=== PATIENT | male | born 1955 | race Caucasian/White ===

== ENCOUNTER 2019-12-14 06:02 | Day surgery (SDC) | payer BC, SELFPAY ==
--- NOTE | 2019-12-04 11:26 | PM.HPUD ---
H&P update H&P Update: DATE OF SURGERY/PROCEDURE: 12/04/19 DATE H&P PERFORMED: 11/06/19 H&P UPDATE INFORMATION: H&P completed within last 30 days and No changes to prior documentation PLANNED PROCEDURE: Operation Date: 12/04/19 11:15 Proposed Procedures p Tympanoplasty requiring tube insertion(Not Applicable) - Real Self M.D
[2019-12-13 14:35] VITALS: BMI 40.7
[2019-12-14] VITALS (7 sets, daily range): BP systolic 118–156; BP diastolic 79–98; PULSE 75–88; RESP 14–19; TEMP 36.7–36.8; O2SAT 96–100
--- NOTE | 2019-12-14 06:34 | ANES.PREANES ---
Pre-Anesthetic Assessment Pre-Anesthetic Assessment: Height/Weight: Height 1.7 m Weight 117.934 kg Preop Diagnosis: recurrent otitis media Proposed Procedure: Operation Date: 12/14/19 07:35 Proposed Procedures p Myringotomy and Tubes(Not Applicable) - Real Self M.D Exam: Pre-Anes Outpt Exam: alert and oriented x 3 Airway: Submandibular: WNL Cervical ROM: WNL Pulmonary: Pulmonary: Asthma Musc/skel: Musc/skel: None reported Anesthetic Plan: Anesthesia: General PFSH Anesthesia PFSH: Family History (Updated 12/13/19 @ 14:31 by [employer]) Father Diabetes Cancer Mother Cancer Social History (Updated 12/13/19 @ 14:32 by [employer]) Smoking and tobacco status: former smoker Quit status (tobacco): has quit using tobacco Alcohol intake: never Data Anesthesia Cardiac Studies: No Data to Display
[2019-12-14] MEDS: sodium chloride 0.9% 1,000 ML 30 ML IV (07:06)
--- NOTE | 2019-12-14 07:55 | ANES.PREANES ---
Pre-Anesthetic Assessment Pre-Anesthetic Assessment: Height/Weight: Height 1.7 m Weight 117.934 kg Temp Pulse Resp BP Pulse Ox 98.1 F 77 18 131/79 97 12/14/19 06:35 12/14/19 06:35 12/14/19 06:35 12/14/19 06:35 12/14/19 06:35 Preop Diagnosis: recurrent otitis media Proposed Procedure: Operation Date: 12/14/19 07:35 Proposed Procedures p Myringotomy and Tubes(Not Applicable) - Real Self M.D Last intake: Intake Last Liquid Date 12/13/19 Last Liquid Time 20:30 Last Solid Date 12/13/19 Last Solid Time 20:30 Social: Social History: Tobacco Packs per day: 2 ppd x 25 years Comment: quit 25 y ago Exam: Pre-Anes Outpt Exam: alert and oriented x 3 Airway: Submandibular: Other Cervical ROM: Other MP: 3 Dentition: Partials Pulmonary: Comments: pneumonia post shoulder sx '14 CV/HEM: CV/HEM: PVD (08/16 left CEA) Anesthetic Plan: ASA status: III Anesthesia: General Meds/Allergies Current Medications: Current Medications Generic Name Dose Route Start Last Admin Trade Name Freq PRN Reason Stop Dose Admin Sodium Chloride 1,000 mls @ 30 ml s/hr 12/14/19 07:00 12/14/19 07:06 Sodium Chloride 0.9% IV 30 mls/hr .Q24H VERA Administration PFSH Anesthesia PFSH: Family History (Updated 12/13/19 @ 14:31 by [employer]) Father Diabetes Cancer Mother Cancer Social History (Updated 12/13/19 @ 14:32 by [employer]) Smoking and tobacco status: former smoker Quit status (tobacco): has quit using tobacco Alcohol intake: never Data Anesthesia Cardiac Studies: No Data to Display
[2019-12-14] MEDS: ofloxacin 0.3% otic 5 mL Btl 3 DROP EAR-BOTH (08:49)
--- NOTE | 2019-12-14 09:27 | PM.OP ---
Operative Report Date of procedure: 12/14/19 Pre-op Diagnosis: recurrent otitis media Post-op diagnosis: same Procedure Done: Bilateral myringotomy and tube Pathology: none sent Surgeon: Real Self Anesthesia: General Condition: stable Disposition: PACU Procedure: The patient was taken to the operating room and under satisfactory general LMA anesthesia the left ear was examined. A radial incision was made in the anterior-inferior quadrant of the left tympanic membrane. A large amount of fluid was suctioned from the middle ear space and a Paparella tube was placed. An identical procedure and findings were performed on the opposite side. No complications occurred and the patient was discharged in satisfactory and stable condition.
== END 2019-12-14 10:06 | disposition home or self-care (01) ==
PROVIDERS: Family Provider Family Medicine; PCP Family Medicine; Visit Provider Otolaryngology
PROC: (CPT 69420; principal; 2019-12-14 07:35)
DX: H65.33 Chronic mucoid otitis media, bilateral (principal); Z83.3 Family history of diabetes mellitus; E78.5 Hyperlipidemia, unspecified; G47.33 Obstructive sleep apnea (adult) (pediatric); Z87.891 Personal history of nicotine dependence; Z79.82 Long term (current) use of aspirin; H90.8 Mixed conductive and sensorineural hearing loss, unspecified; H93.A9 Pulsatile tinnitus, unspecified ear
CPT/HCPCS: 69436; 12345; 96365; J2001; J2250; J2405; J2704; J2765; J7030

== ENCOUNTER → 2020-01-04 09:04 | Outpatient (BNVA) | payer BC, SELFPAY | PROVIDERS: Family Provider Family Medicine; PCP Family Medicine; Visit Provider Otolaryngology | DX: H65.30 Chronic mucoid otitis media, unspecified ear (principal); H91.90 Unspecified hearing loss, unspecified ear | CPT/HCPCS: 99213; 99214 ==

== ENCOUNTER 2020-01-17 08:43 | Outpatient (CLI) | payer BC, SELFPAY ==
--- NOTE | 2020-01-17 08:45 | USCV_ITS ---
Christopher Ramirez Age: 64 Gender: M : 1955 Exam Date: 01/17/2020 09:01 Ordering Phys: Luis Armando Carreno MD (Andy) ([email or web address] [place] Technologist: Jolene Casey Exam Location: [facility] [place] Indication: CAROTID ARTERY STENOSIS Risk Factors: Previous Vascular Surgery: L CEA Right Brachial BP: / Left Brachial BP: / Right Left Velocity (cm/s) Spectral Plaque Velocity (cm/s) Spectral Plaque Syst/Diast Broadening Syst/Diast Broadening 70.60/ 24.30 Prox CCA 68.40 / 21.70 67.50/ 24.80 Mid CCA 77.70 / 29.50 64.90/ 19.70 Distal CCA 67.60 / 28.00 67.50/ 23.90 Prox ICA 142.80/ 34.20 84.60/ 35.90 Mid ICA 170.90/ 44.20 88.90/ 41.00 Distal ICA 136.70/ 60.30 106.00 ECA 175.60 1.32 ICA/CCA 2.20 Antegrade Vertebral Antegrade 39.50/ 13.90 cm/s 43.40/ 17.10 cm/s Tri Subclavian Tri 121.2 155.4 0 0 FINDINGS comparison 05/28/19 CONCLUSIONS Left ICA stenosis 50-69%. Moderate atheromatous plaque left carotid bulb/ICA. Velocities in mid and distal Left ICA have progressed from previous in 2019 Right ICA stenosis <50%. Mild atheromatous plaque right carotid bulb/ICA. Normal antegrade Doppler flow noted in the right vertebral artery. Normal antegrade Doppler flow noted in the left vertebral artery. William Zmaan MD (Electronically Signed) Final Date: 17 January 2020 10:20 S
== END 2020-01-17 08:44 | disposition home or self-care (01) ==
LOC: US 08:58
PROVIDERS: Family Provider Family Medicine; PCP Family Medicine; Visit Provider Thoracic Surgery (Cardiothoracic Vascular Surgery)
DX: I65.23 Occlusion and stenosis of bilateral carotid arteries (principal)
CPT/HCPCS: 93880

== ENCOUNTER 2021-02-20 06:58 | Outpatient (CLI) | payer OTHER, SELFPAY ==
--- NOTE | 2021-02-20 07:15 | USCV_ITS ---
Christopher Ramirez Age: 65 Gender: M : 1955 Exam Date: 02/20/2021 07:11 Ordering Phys: Luis Armando Carreno MD (Andy) ([email or web address] [place]) Technologist: Jaclyn Jimenez Exam Location: [facility] [place] Indication: STENOSIS Risk Factors: Previous Vascular Surgery: Right Brachial BP: / Left Brachial BP: / Right Left Velocity (cm/s) Spectral Plaque Velocity (cm/s) Spectral Plaque Syst/Diast Broadening Syst/Diast Broadening 92.10/ 25.30 Prox CCA 87.50 / 30.00 77.20/ 23.20 Mid CCA 68.60 / 27.40 75.00/ 23.40 Distal CCA 74.90 / 26.80 59.70/ 18.70 Prox ICA 109.20/ 22.50 72.70/ 28.00 Mid ICA 75.20 / 29.90 58.70/ 23.70 Distal ICA 73.60 / 29.10 129.00 ECA 131.70 0.79 ICA/CCA 1.59 Antegrade Vertebral Antegrade 37.30/ 15.60 cm/s 33.50/ 11.80 cm/s Tri Subclavian Tri 75.30 88.10 FINDINGS Moderate heterogeneous plaques of the right bifurcation Moderate heterogeneous plaques of the left bifurcation and proximal internal carotid artery Intimal thickening in the common carotid arteries bilaterally Antegrade flow in the vertebral arteries bilaterally Normal Doppler flow velocities in the subclavian arteries bilaterally CONCLUSIONS Moderate heterogeneous plaques at the bifurcations and proximal internal carotid arteries bilaterally with the Doppler features consistent with less than 50% stenosis Intimal thickening in the common carotid arteries bilaterally. Compared to the study from 01/17/2020, the stenosis on the left side appears to be less severe Dr Madalyn Downey MD [facility] (Electronically Signed) Final Date: 21 February 2021 12:15 S
== END 2021-02-20 06:59 | disposition home or self-care (01) ==
LOC: US 07:00
PROVIDERS: PCP Family Medicine; Visit Provider Thoracic Surgery (Cardiothoracic Vascular Surgery)
DX: I65.23 Occlusion and stenosis of bilateral carotid arteries (principal)
CPT/HCPCS: 93880

== ENCOUNTER 2021-07-03 07:00 | Outpatient (CLI) | payer OTHER, SELFPAY ==
[2021-07-03 07:09] VITALS: BP 133/85; PULSE 97; RESP 16; TEMP 36.7; O2SAT 96
[2021-07-03 07:56] VITALS: BP 121/77; PULSE 72; RESP 16; O2SAT 94
[2021-07-03 08:51] VITALS: BP 121/80; PULSE 74; RESP 16; TEMP 36.7; O2SAT 94
== END 2021-07-03 13:02 | disposition home or self-care (01) ==
PROVIDERS: PCP Family Medicine; Visit Provider Family Medicine
DX: U07.1 COVID-19 (principal)
CPT/HCPCS: 96365

== ENCOUNTER 2021-09-24 15:37 | Emergency (ER) | payer OTHER, SELFPAY ==
[2021-09-24 17:11] VITALS: BP 156/104; PULSE 88; RESP 18; TEMP 36.4; O2SAT 96; BMI 42.3
--- NOTE | 2021-09-24 17:46 | ED_ITS ---
HPI - Back Pain/Injury General: Chief Complaint: Back Pain/Injury Stated Complaint: W/C - BACK INJURY WHILE LIFTING MIRRORS Time Seen by Provider: 09/24/21 17:33 History of Present Illness: HPI Narrative: Patient is a 66-year-old male comes to the ED with back pain. 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 He is now having 10 out of 10 lower back pain that gets worse with certain movements and twisting of torso. Pain stays in lower back and does not radiate anywhere else. Denies any weakness, numbness to extremities, bladder or bowel incontinence or any pelvic anesthesia. Associated symptoms: Deny abdominal pain, chills, dysuria, fatigue, fever(s), hematuria, nausea or vomiting Review of Systems Const: Denies: fever(s), chills or fatigue Eyes: Denies: change in vision or eye discomfort ENMT: Denies: throat pain, odynophagia, nasal discharge or nasal congestion Card: Denies: chest pain, palpitations, edema, swelling of feet/ankles, dyspnea on exertion or orthopnea Resp: Denies: dyspnea, productive cough or non-productive cough GI: Denies: abdominal pain, nausea, vomiting, diarrhea, constipation or hematochezia : Denies: flank pain, difficulty urinating, dysuria or hematuria Musc: Reports: back pain; Denies: neck pain or extremity swelling Skin/Breast: Denies: rash or new lesions Neuro: Denies: headache(s), numbness in extremities or weakness in extremities PFS ED PFSH: Medical History Chronic secretory otitis media Hearing loss Surgical History H/O carotid endarterectomy History of appendectomy Family History Father Diabetes Cancer Mother Cancer Social History Smoking and tobacco status: former smoker Quit status (tobacco): has quit using tobacco Alcohol intake: never History of recent travel: No Physical Exam Const: COMMON NORMALS: no acute distress, patient oriented x3 and alert GENERAL APPEARANCE: cooperative and comfortable HENMT: COMMON NORMALS: normocephalic HEAD & SCALP: normocephalic MOUTH: Normal oral and palatal mucosa present THROAT: posterior oropharynx normal and uvula midline Neck/C-Spine: COMMON NORMALS: supple GENERAL: Yes normal visual inspection Resp: COMMON NORMALS: normal respiratory effort, No retractions, No use of accessory muscles and clear to auscultation bilaterally AUSCULTATION: clear to auscultation bilaterally Cardio: COMMON NORMALS: regular rate, regular rhythm, S1 normal heart sound present, S2 normal heart sound present, No gallops present (Cardio), No clicks present (Cardio), No murmurs present (Cardio) and Peripheral pulses 2+ throughout RATE: regular rate RHYTHM: regular rhythm HEART SOUNDS: S1 normal heart sound present and S2 normal heart sound present PERIPHERAL PULSES: Peripheral pulses 2+ throughout GI: COMMON NORMALS: Normal to inspection, nondistended, normoactive bowel sounds present, Soft to palpation, non-tender and no masses PALPATION: Yes Soft to palpation : COMMON NORMALS: Yes no CVA tenderness BLADDER/KIDNEY EXAM: Yes no CVA tenderness Back/Pelvis: COMMON NORMALS: no CVA tenderness LUMBAR SPINE/LOWER BACK: Yes pain with ROM, No lumbar spinal tenderness and Yes paraspinal muscle tenderness Lumbar paraspinal muscle tenderness: right Right lumbar paraspinal muscle tenderness: L2, L3 and L4 Extremity: COMMON NORMALS: normal to inspection Neuro: COMMON NORMALS: patient oriented x3 and moves all extremities SENSORIUM/ORIENTATION: Yes alert Skin: GENERAL SKIN EXAM: dry skin Course Vital Signs: Vital signs: Vital Signs Temperature 97.6 F 09/24/21 17:11 Pulse Rate 88 09/24/21 17:11 Respiratory Rate 18 09/24/21 17:11 Blood Pressure 156/104 09/24/21 17:11 Pulse Oximetry 96 09/24/21 17:11 MDM - Back Pain/Injury MDM Narrative: Medical decision making narrative: Patient is a 66-year-old male comes to the ED with lower back pain. Patient says he was at work couple days ago and was lifting some heavy mirrors and afterwards he felt pain in his right lower back. Pain is localized on right lower back and does not radiate anywhere else or into the legs. Denies any cauda equina symptoms. He is some lumbar paraspinal muscle tenderness on the right side around the L2-L4 region. Patient was given a dose of Toradol, Decadron and Norflex while here in the ED. Patient diagnosed with a lumbar strain and discharged home with a prescription for celebrex, Flexeril and Medrol Dosepak. Follow-up with PCP in 7 to 10 days for reevaluation. Return to ED precautions given. Patient understood and agreed with plan. Discharge Plan Discharge Patient Disposition: Home Clinical Impression: Strain of lumbar region Qualifiers: Encounter type: initial encounter Qualified Code(s): S39.012A - Strain of muscle, fascia and tendon of lower back, initial encounter Condition: Stable Prescriptions: New cyclobenzaprine 10 mg tablet 10 mg PO BID PRN (Reason: muscle spasm) Qty: 20 RF: 0 Medrol (Nadeem) 4 mg tablets,dose pack See Rx Instructions .ROUTE .COMPLEX Qty: 21 RF: 0 celecoxib 100 mg capsule 100 mg PO BID PRN (Reason: pain) Qty: 30 RF: 0 No Action topiramate 50 mg tablet 50 mg PO BID RF: 0 atorvastatin 40 mg tablet 40 mg PO DAILY RF: 0 clopidogrel 75 mg tablet 75 mg PO DAILY RF: 0 aspirin 81 mg Tablet,Delayed Release (Dr/Ec) 81 mg PO DAILY RF: 0 ibuprofen 800 MG 800 mg PO TID PRNRF: 0 Discharge Orders: Discharge ED (Routine); Ordered 09/24/21 Ordered By: Shakeel Younger Referrals: Shakeel Fulton MD [Primary Care Provider] - Discharge Diet: Regular Discharge Activity: Limit activity as instructed Patient Instructions: Low Back Strain (ED), Acute Low Back Pain (ED), Lower Ba ck Exercises (ED) Activity Restrictions/Additional Instructions: Follow-up with medical provider as directed in 7 to 10 days for reevaluation. Rest, apply ice/cold pack on lower back to help with symptoms. Limit lifting for the next couple days. Take medications as prescribed. Cyclobenzaprine is a muscle relaxer and can cause some drowsiness so take at night before going to bed. Return to the ER or your medical provider if condition worsens. Please read and understand discharge instructions. Thank you for choosing [facility] for your healthcare needs today. Please realize this is an emergency room and that we are providing you with a medical screening exam and this may not be complete and all inclusive of all the testing and or work up that you may need to determine your ailment or severity of your illness. It is very important that you follow up as instructed or that you return to the Emergency Department should you have concerns or if your condition changes or worsens in any way. Coding Level of Care Code ED Airplane Patrol Pilot for Alyssa Miller Exam Comprehensive
[2021-09-24] MEDS: orphenadrine 30 mg/mL Inj 2 mL 60 MG IM (18:10)
[2021-09-24] MEDS: dexamethasone 10 mg/mL INJ IM (18:11)
[2021-09-24] MEDS: ketorolac 60 mg/2 mL INJ IM (18:11)
== END 2021-09-24 18:27 | disposition home or self-care (01) ==
PROVIDERS: Emergency Provider Physician Assistant; PCP Family Medicine
DX: S39.012A Strain of muscle, fascia and tendon of lower back, initial encounter (principal); X50.9XXA Other and unspecified overexertion or strenuous movements or postures, initial encounter; Z87.891 Personal history of nicotine dependence; Z79.82 Long term (current) use of aspirin
CPT/HCPCS: 96372; 99283; J1100; J1885; J2360

== ENCOUNTER 2021-10-02 13:14 | Outpatient (CLI) | payer OTHER, SELFPAY ==
--- NOTE | 2021-10-02 13:28 | XR_ITS ---
WS: [id number] LUMBAR SPINE: 3 VIEWS TECHNIQUE: AP, lateral and L5-S1 spot. HISTORY: pain after injury COMPARISON: None available. Normal posterior lumbar alignment. Endplate osteophytes and very mild disc space narrowing. Facet art hritis is mild at L4-5 and L5-S1. Pedicles are all identified. No fracture. SI joints are symmetric bilaterally. No soft tissue abnormalities. Mild calcification within the aorta. XR/XR lumbar spine 2-3V* [id number] IMPRESSION: Mild lumbar spondylosis. No fracture.
== END 2021-10-02 13:15 | disposition home or self-care (01) ==
LOC: RAD 13:16
PROVIDERS: PCP Family Medicine; Visit Provider Nurse Practitioner
DX: M54.9 Dorsalgia, unspecified (principal); M47.816 Spondylosis without myelopathy or radiculopathy, lumbar region; S39.92XA Unspecified injury of lower back, initial encounter; X58.XXXA Exposure to other specified factors, initial encounter
CPT/HCPCS: 72100

== ENCOUNTER → 2022-02-26 13:24 | Outpatient (BNVA) | payer OTHER, SELFPAY | PROVIDERS: PCP Family Medicine; Visit Provider Registered Nurse Neonatal Intensive Care | DX: M25.511 Pain in right shoulder (principal) | CPT/HCPCS: 73030 ==

== ENCOUNTER → 2022-06-04 09:42 | Outpatient (BNVA) | payer OTHER, SELFPAY | PROVIDERS: PCP Family Medicine; Visit Provider Family Medicine | DX: E11.8 Type 2 diabetes mellitus with unspecified complications (principal); Z51.81 Encounter for therapeutic drug level monitoring | CPT/HCPCS: 80053; 80061; 83036 ==

== ENCOUNTER 2022-07-09 14:31 | Emergency (ER) | payer OTHER, SELFPAY ==
--- NOTE | 2022-07-09 14:34 | XR_ITS ---
WS: [id number] XR shoulder RT min 2V* [id number] REASON FOR EXAM: injury FINDINGS: The right shoulder joint is unchanged compared to previous examination of 02/26/2022. Wide separation of the acromial process and clavicle secondary to previous osteotomy of the right cla vicle. No fracture. Soft tissue anchors overlying the humeral head indicative of rotator cuff tendon repair. Moderate changes of osteoarthritis in the glenohumeral joint. No fracture of the humerus or glenoid. Scapula is intact. XR/XR shoulder RT min 2V* [id number] IMPRESSION: Postoperative changes and osteoarthritis. No acute abnormality.
[2022-07-09 14:52] VITALS: BP 151/83; PULSE 78; RESP 18; TEMP 36.7; O2SAT 95; BMI 37.5
[2022-07-09 16:43] VITALS: BP 154/81; PULSE 74; RESP 16; O2SAT 97
--- NOTE | 2022-07-09 16:46 | W.ED.EXTPRO ---
HPI - Extremity Problem General: Chief complaint: Extremity Injury, Upper Stated complaint: right shoulder pain Time Seen by Provider: 07/09/22 15:13 Source: patient Mode of arrival: ambulatory Limitations: no limitations History of Present Illness: 67-year-old male states that he was lifting his bed cover up earlier today states he felt a very sharp pop in his right shoulder he been having severe right shoulder pain since then he states its worse with any movement on lifting his arm. States improved with rest. He denies any headache has some slight radiation of pain into his neck. No weakness in that arm. Associated symptoms: Deny chest pain, fever(s) or rash Review of Systems Const: Denies: fever(s), chills, body aches or change in appetite Eyes: Denies: blurry vision or eye discomfort ENMT: Denies: throat pain or dental pain Card: Denies: chest pain Resp: Denies: dyspnea GI: Denies: abdominal pain, nausea, vomiting or diarrhea : Denies: dysuria Musc: Reports: extremity pain Skin/Breast: Denies: rash Neuro: Denies: headache(s) Psych: Denies: depression Gallo/Lymph: Denies: easy bruising All/Imm: Denies: urticaria PFSH ED PFSH: Medical History Chronic secretory otitis media Hearing loss Surgical History H/O carotid endarterectomy History of appendectomy Family History Father Diabetes Cancer Mother Cancer Social History Smoking and tobacco status: former smoker Quit status (tobacco): has quit using tobacco Alcohol intake: never History of recent travel: No Physical Exam Const: COMMON NORMALS: no acute distress, patient oriented x3 and healthy appearing HENMT: COMMON NORMALS: normocephalic and atraumatic HEAD & SCALP: normocephalic and atraumatic Eye: COMMON NORMALS: Equal, round and reactive pupils present and EOMs intact bilaterally PUPIL: Yes Equal, round and reactive pupils present Neck/C-Spine: COMMON NORMALS: full ROM and supple Chest: COMMONS NORMALS: normal inspection of the chest and normal palpation of entire chest wall Resp: COMMON NORMALS: normal respiratory effort Cardio: COMMON NORMALS: regular rate, regular rhythm and No murmurs present (Cardio) RATE: regular rate RHYTHM: regular rhythm GI: INSPECTION: Yes normal to inspection Extremity: NARRATIVE EXTREMITY EXAM: Tenderness over right shoulder does have full range of motion but does have some pain with range of motion no obvious deformities distal pulses sensation intact Neuro: COMMON NORMALS: patient oriented x3, moves all extremities and no focal motor deficits Psych: COMMON NORMALS: mental status grossly normal, Normal thought process present and cooperative THOUGHT PROCESS: Normal thought process present Skin: COMMON NORMALS: no rashes or lesions noted and no wounds GENERAL SKIN EXAM: no rashes or lesions noted Course Vital Signs: Vital signs: Vital Signs Temperature 98.1 F 07/09/22 14:52 Pulse Rate 74 07/09/22 16:43 Respiratory Rate 16 07/09/22 16:43 Blood Pressure 154/81 07/09/22 16:43 Pulse Oximetry 97 07/09/22 16:43 Oxygen Delivery Me thod 07/09/22 16:43 MDM - Extremity (Nontraumatic) Medical Decision Making Patient presents here with right shoulder pain with likely shoulder sprain likely muscular is quite tender over the muscle he had previous surgery for rotator injury as well we will place him in a sling he is to follow-up with orthopedics we will place him on pain medicine along with anti-inflammatories and muscle relaxants we will get him follow-up with orthopedics he is to return if worsening he understands agrees to plan. Lab Data Radiology Impressions Shoulder X-Ray 07/09/22 14:34 IMPRESSION: Postoperative changes and osteoarthritis. No acute abnormality. Discharge Plan Discharge Patient Disposition: Home Clinical Impression: Right shoulder strain Condition: Stable Prescriptions: New hydrocodone-acetaminophen 5-325 mg tablet 1 tab PO Q6H PRN (Reason: pain) Qty: 8 0RF methocarbamol 750 mg tablet 750 mg PO Q6H PRN (Reason: spasms) Qty: 20 0RF Naprosyn 500 mg tablet 500 mg PO BID PRN (Reason: pain) Qty: 20 0RF No Action baclofen 10 mg tablet 10 mg PO TID PRN (Reason: muscle spasm) Qty: 20 0RF diclofenac sodium 75 mg tablet,delayed release (DR/EC) 75 mg PO BID PRN (Reason: pain) Qty: 30 0RF Rx Instructions: take with food. Safe to drive when taking hydrocodone-acetaminophen 7.5-325 mg tablet 1 tab PO Q8H PRN (Reason: pain) 7 Days Qty: 20 0RF atorvastatin 40 mg tablet 40 mg PO DAILY clopidogrel 75 mg tablet 75 mg PO DAILY aspirin 81 mg Tablet,Delayed Release (Dr/Ec) 81 mg PO DAILY Discharge Orders: Discharge ED (Routine); Ordered 07/09/22 Ordered By: Ej Galindo Referrals: Gurpreet Benavidez DO [Physician] - 1-3 days Shakeel Fulton MD [Primary Care Provider] - Discharge Diet: Advance as tolerated Discharge Activity: Resume usual activity Patient Instructions: Shoulder Sprain (ED), Shoulder Pain (ED), Opioid Safety Coding Level of Care Code ED [employer] Tank Missileman for Alyssa Miller
[2022-07-09] MEDS: HYDROcodone-acetaminophen 5-325 mg Tablet 1 TAB PO (17:08)
--- NOTE | 2022-07-13 12:24 | DCPLANNER ---
Addendum entered by Tana Marcos 07/30/22 12:54: Patient had a follow up appointment scheduled for 07.13.22 with ortho - patient did attend appointment. Original Note: environmental services project manager had message to schedule a follow up appointment for patient with ortho. environmental services project manager sent patients information to the front office staff at ortho. Patients information will be printed and reviewed. Clinic will call patient with appointment information.
== END 2022-07-09 17:08 | disposition home or self-care (01) ==
PROVIDERS: Emergency Provider Emergency Medicine; PCP Family Medicine
DX: S46.911A Strain of unspecified muscle, fascia and tendon at shoulder and upper arm level, right arm, initial encounter (principal); Z79.82 Long term (current) use of aspirin; Z79.02 Long term (current) use of antithrombotics/antiplatelets; Z87.891 Personal history of nicotine dependence; X50.0XXA Overexertion from strenuous movement or load, initial encounter
CPT/HCPCS: 73030; 99283

== ENCOUNTER 2022-07-16 08:11 | Outpatient (RCR) | payer OTHER, SELFPAY | END 2022-07-28 23:59 | disposition home or self-care (01) | LOC: SPT 08:11 | PROVIDERS: PCP Family Medicine; Referring Provider Student in an Organized Health Care Education/Training Program; Visit Provider Student in an Organized Health Care Education/Training Program | DX: S46.219D Strain of muscle, fascia and tendon of other parts of biceps, unspecified arm, subsequent encounter (principal); X58.XXXD Exposure to other specified factors, subsequent encounter | CPT/HCPCS: 97110; 97161 ==

== ENCOUNTER 2022-07-29 06:00 | Outpatient (RCR) | payer OTHER, SELFPAY | END 2022-08-27 23:59 | disposition home or self-care (01) | LOC: SPT 06:00 | PROVIDERS: PCP Family Medicine; Visit Provider Student in an Organized Health Care Education/Training Program | DX: S43.421D Sprain of right rotator cuff capsule, subsequent encounter (principal); X58.XXXD Exposure to other specified factors, subsequent encounter; M25.511 Pain in right shoulder | CPT/HCPCS: 97110 ==

== ENCOUNTER 2022-08-27 06:01 | Outpatient (CLI) | payer OTHER, SELFPAY ==
--- NOTE | 2022-08-27 06:30 | USCV_ITS ---
RamirezChristopher murphy Age: 67 Gender: M : 1955 Exam Date: 08/27/2022 06:20 Ordering Phys: Luis Armando Carreno MD (Andy) ([email or web address] [place] Technologist: MIGUEL Exam Location: [facility] [place] Indication: H/O LT CEA EVAL FOR CAROTID STENOSIS Risk Factors: Previous Vascular Surgery: Right Brachial BP: / Left Brachial BP: / Right Left Velocity (cm/s) Spectral Plaque Velocity (cm/s) Spectral Plaque Syst/Diast Broadening Syst/Diast Broadening 97.00/ 27.60 Prox CCA 92.60 / 29.80 99.20/ 24.30 Mid CCA 86.00 / 27.60 84.60/ 27.30 Distal CCA 74.30 / 26.50 64.80/ 18.20 Prox ICA 92.00 / 19.40 72.90/ 22.30 Mid ICA 78.90 / 40.30 66.90/ 29.30 Distal ICA 94.05 / 47.15 100.30 ECA 137.50 0.73 ICA/CCA 1.18 Antegrade Vertebral Antegrade 42.40/ 15.70 cm/s 46.60/ 15.50 cm/s Tri Subclavian Tri 146.9 168.3 0 0 FINDINGS Comparison:. 02/20/21 No significant elevation of systolic or diastolic velocities. Mild bilateral scattered calcified plaque and intimal thickening throughout the common carotid arteries and extending through the bifurcation. No progression of plaque. Antegrade vertebral arteries CONCLUSIONS Bilateral ICA stenosis less than 50%. Mild stable carotid atherosclerosis. Dr. Hannah Keen DO (Electronically Signed) Final Date: 27 August 2022 07:40 S
== END 2022-08-27 06:02 | disposition home or self-care (01) ==
LOC: RAD 06:02
PROVIDERS: PCP Family Medicine; Visit Provider Thoracic Surgery (Cardiothoracic Vascular Surgery)
DX: I65.23 Occlusion and stenosis of bilateral carotid arteries (principal)
CPT/HCPCS: 93880

== ENCOUNTER 2022-08-28 06:00 | Outpatient (RCR) | payer OTHER, SELFPAY | END 2022-09-02 23:59 | disposition home or self-care (01) | LOC: SPT 06:00 | PROVIDERS: PCP Family Medicine; Visit Provider Student in an Organized Health Care Education/Training Program | DX: S46.011A Strain of muscle(s) and tendon(s) of the rotator cuff of right shoulder, initial encounter (principal); X58.XXXA Exposure to other specified factors, initial encounter | CPT/HCPCS: 97110 ==

== ENCOUNTER → 2022-09-17 08:35 | Outpatient (BNVA) | payer OTHER, SELFPAY | PROVIDERS: PCP Family Medicine; Visit Provider Family Medicine | DX: E11.9 Type 2 diabetes mellitus without complications (principal); Z13.220 Encounter for screening for lipoid disorders; Z51.81 Encounter for therapeutic drug level monitoring | CPT/HCPCS: 80053; 80061; 83036; 85025 ==

== ENCOUNTER → 2022-12-24 09:44 | Outpatient (BNVA) | payer MEDICARE, OTHER, SELFPAY | PROVIDERS: PCP Family Medicine; Visit Provider Family Medicine | DX: Z51.81 Encounter for therapeutic drug level monitoring (principal); E11.9 Type 2 diabetes mellitus without complications; R16.0 Hepatomegaly, not elsewhere classified; H53.9 Unspecified visual disturbance; M76.899 Other specified enthesopathies of unspecified lower limb, excluding foot; R42 Dizziness and giddiness; Z01.810 Encounter for preprocedural cardiovascular examination | CPT/HCPCS: 80053; 85025; 86141 ==

== ENCOUNTER → 2022-12-29 14:39 | Outpatient (BNVA) | payer MEDICARE, OTHER, SELFPAY | PROVIDERS: PCP Family Medicine; Visit Provider Family Medicine | DX: E11.9 Type 2 diabetes mellitus without complications (principal); Z51.81 Encounter for therapeutic drug level monitoring | CPT/HCPCS: 83036; 85025 ==

== ENCOUNTER 2023-01-07 06:00 | Outpatient (RCR) | payer MEDICARE, OTHER, SELFPAY | END 2023-01-15 23:59 | disposition home or self-care (01) | LOC: SPT 06:00 | PROVIDERS: PCP Family Medicine; Visit Provider Family Medicine | DX: R42 Dizziness and giddiness (principal) | CPT/HCPCS: 95992; 97162 ==

== ENCOUNTER 2023-01-17 21:08 | Emergency (ER) | payer MEDICARE, OTHER, SELFPAY ==
[2023-01-17 21:09] VITALS: BP 157/78; PULSE 89; RESP 18; TEMP 36.5; O2SAT 95; BMI 40.7
--- NOTE | 2023-01-17 21:10 | XRR_ITS ---
PROCEDURE INFORMATION: Exam: XR Right Ankle Exam date and time: 01/17/2023 9:30 PM Age: 67 years old Clinical indication: Pain; Ankle; Right; Prior surgery; Surgery date: 6+ months; Surgery type: Surgery 1980; Additional info: Injury TECHNIQUE: Imaging protocol: Radiologic exam of the Right ankle. Views: 3 or more views. COMPARISON: No relevant prior studies available. FINDINGS: Bones/joints: Postoperative changes of plate and screw fixation distal diaphysis of the right fibula with intact hardware. There is also a single screw present in the medial malleolus. A small fracture fragment is seen adjacent to the medial malleolus measuring 6 mm which appears well corticated consistent with old trauma. No acute displaced fracture. Minimal soft tissue swelling. Mild tibiotalar joint arthritis. Soft tissues: See Bones/joints finding. XR/XR ankle RT min 3V* [id number] IMPRESSION: 1. Postoperative changes. No acute osseous injury. 2. Minimal soft tissue swelling.
--- NOTE | 2023-01-17 21:55 | ED_ITS ---
HPI - Extremity Problem General: Chief complaint: Extremity Injury, Lower Stated complaint: right ankle pain Time Seen by Provider: 01/17/23 21:22 History of Present Illness: Patient is a 67-year-old male who comes to the ED with right ankle pain. Symptoms started this morning. He states that he started trying to exercise by walking 2 miles every evening for the past 2 days. He has not been doing any other exercises previously and he states that this is the most walking he has done in a while. Today he started developing right ankle pain and pain around his Achilles tendon. Pain is mild when he is at rest. Pain worsens when he ambulates. Patient says he has a history of an ankle fracture back in and he had surgery and hardware was placed. Denies any other injury or trauma to cause right ankle pain. He has been icing ankle today. Associated symptoms: Deny chest pain, fever(s) or rash Review of Systems Const: Denies: fever(s), chills or fatigue Eyes: Denies: change in vision or eye discomfort ENMT: Denies: throat pain, odynophagia, nasal discharge or nasal congestion Card: Denies: chest pain, palpitations, edema, swelling of feet/ankles, dyspnea on exertion or orthopnea Resp: Denies: dyspnea, productive cough or non-productive cough GI: Denies: abdominal pain, nausea, vomiting, diarrhea, constipation or hematochezia : Denies: flank pain, difficulty urinating, dysuria or hematuria Musc: Reports: extremity pain (Right ankle and Achilles tendon pain); Denies: neck pain, back pain or extremity swelling Skin/Breast: Denies: rash or new lesions Neuro: Denies: headache(s), numbness in extremities or weakness in extremities PFSH ED PFSH: Medical History Chronic secretory otitis media Hearing loss Right rotator cuff tendonitis Surgical History H/O carotid endarterectomy History of appendectomy Family History Father Diabetes Cancer Mother Cancer Social History Smoking and tobacco status: former smoker Quit status (tobacco): has quit using tobacco Alcohol intake: never Physical Exam Const: COMMON NORMALS: no acute distress, patient oriented x3 and alert GENERAL APPEARANCE: cooperative HENMT: COMMON NORMALS: normocephalic HEAD & SCALP: normocephalic MOUTH: Normal oral and palatal mucosa present THROAT: posterior oropharynx normal and uvula midline Neck/C-Spine: COMMON NORMALS: supple GENERAL: Yes normal visual inspection Resp: COMMON NORMALS: normal respiratory effort, No retractions, No use of accessory muscles and clear to auscultation bilaterally AUSCULTATION: clear to auscultation bilaterally Cardio: COMMON NORMALS: regular rate, regular rhythm, S1 normal heart sound present, S2 normal heart sound present, No gallops present (Cardio), No clicks present (Cardio), No murmurs present (Cardio) and Peripheral pulses 2+ throughout RATE: regular rate RHYTHM: regular rhythm HEART SOUNDS: S1 normal heart sound present and S2 normal heart sound present PERIPHERAL PULSES: Peripheral pulses 2+ throughout GI: COMMON NORMALS: Normal to inspection, nondistended, normoactive bowel sounds present, Soft to palpation, non-tender and no masses PALPATION: Yes Soft to palpation : COMMON NORMALS: Yes no CVA tenderness BLADDER/KIDNEY EXAM: Yes no CVA tenderness Back/Pelvis: COMMON NORMALS: no CVA tenderness Extremity: NARRATIVE EXTREMITY EXAM: Right ankle?no visible deformity noted. Tenderness posterior to lateral malleolus and to Achilles tendon. Neurovascular intact distally. Neuro: COMMON NORMALS: patient oriented x3 SENSORIUM/ORIENTATION: Yes alert GAIT: Yes Normal gait present Skin: GENERAL SKIN EXAM: dry skin Course Vital Signs: Vital signs: Vital Signs Temperature 97.7 F 01/17/23 21:09 Pulse Rate 82 01/17/23 23:10 Respiratory Rate 18 01/17/23 23:10 Blood Pressure 157/78 01/17/23 21:09 Pulse Oximetry 100 01/17/23 23:10 Oxygen Delivery Me thod 01/17/23 21:09 MDM - Extremity (Nontraumatic) Medical Decision Making Patient is a 67-year-old male who comes to the ED with right ankle pain. Symptoms started this morning. He states that he started trying to exercise by walking 2 miles every evening for the past 2 days. He has not been doing any other exercises previously and he states that this is the most walking he has done in a while. Today he started developing right ankle pain and pain around his Achilles tendon. Pain is mild when he is at rest. Pain worsens when he ambulates. Patient says he has a history of an ankle fracture back in 1980s and he had surgery and hardware was placed. Vitals are stable. Right ankle?no visible deformity noted. Tenderness posterior to lateral malleolus and to Achilles tendon. Neurovascular intact distally. X-ray of right ankle shows no acute fractures and hardware is in place. He was diagnosed with right ankle pain likely due to overuse. He was discharged home with a crutches and told to limit weightbearing for the next couple days for to help with symptoms. Rest, ice and elevate right ankle. Return to ED precautions given. follow-up with PCP in the next week for reevaluation. Patient understood and agreed with plan. Lab Data Radiology Impressions Ankle X-Ray 01/17/23 21:10 IMPRESSION: 1. Postoperative changes. No acute osseous injury. 2. Minimal soft tissue swelling. Discharge Plan Discharge Patient Disposition: Home Clinical Impression: Ankle pain, right Qualifiers: Chronicity: acute Qualified Code(s): M25.571 - Pain in right ankle and joints of right foot Condition: Stable Prescriptions: No Action amoxicillin-pot clavulanate 875-125 mg tablet 1 tab PO BID Qty: 20 1RF insulin glargine [Lantus Solostar U-100 Insulin] 100 unit/mL (3 mL) insulin pen 55 unit SUBCUT DAILY Qty: 15 12RF (DME) Premier Test Strip Strip See Rx Instructions .Route Qty: 100 12RF Rx Instructions: As directed - test glucose 3x/day clopidogrel 75 mg tablet 75 mg PO DAILY Qty: 30 6RF (DME) pen needle, diabetic [BD Nasreen 2nd Gen Pen Needle] 32 gauge x 5/32 needle See Rx Instructions .ROUTE .COMPLEX Qty: 100 12RF Dose Instruction: USE DIRECTED Rx Instructions: USE DIRECTED atorvastatin 40 mg tablet 40 mg PO DAILY aspirin 81 mg Tablet,Delayed Release (Dr/Ec) 81 mg PO DAILY hydrocodone-acetaminophen 5-325 mg tablet 1 tab PO Q6H PRN (Reason: pain) Qty: 8 0RF Discharge Orders: Discharge ED (Routine); Ordered 01/17/23 Ordered By: Shakeel Younger Referrals: Shakeel Fulton MD [Primary Care Provider] - Discharge Diet: Regular Discharge Activity: Limit activity as instructed and Use walker/crutches as instructed Activity Restrictions/Additional Instructions: Follow-up with medical provider as directed in the next 5 to 7 days for reevaluation. Rest, ice and elevate right ankle to help with symptoms. Use crutches and limit weightbearing for the next 2 to 3 days and slowly advance weightbearing as tolerated. Take your previously prescribed tramadol for pain. Return to the ER or your medical provider if condition worsens. Please read and understand discharge instructions. Thank you for choosing [facility] for your healthcare needs today. Please realize this is an emergency room and that we are providing you with a medical screening exam and this may not be complete and all inclusive of all the testing and or work up that you may need to determine your ailment or severity of your illness. It is very important that you follow up as instructed or that you return to the Emergency Department should you have concerns or if your cond ition changes or worsens in any way. Stand Alone Forms: Work/School Release Coding Level of Care Code ED Supervisor [employer] for Alyssa Miller
[2023-01-17] MEDS: ketorolac 30 mg/mL INJ IM (22:04)
[2023-01-17 23:10] VITALS: PULSE 82; RESP 18; O2SAT 100
== END 2023-01-17 23:11 | disposition home or self-care (01) ==
PROVIDERS: Emergency Provider Physician Assistant; PCP Family Medicine
DX: M25.571 Pain in right ankle and joints of right foot (principal); Z79.82 Long term (current) use of aspirin; Z79.4 Long term (current) use of insulin; Z79.02 Long term (current) use of antithrombotics/antiplatelets
CPT/HCPCS: 73610; 96372; 99284; E0114; J1885

== ENCOUNTER 2023-01-21 06:47 | Outpatient (CLI) | payer MEDICARE, OTHER, SELFPAY ==
--- NOTE | 2023-01-21 07:15 | US_ITS ---
WS: [id number] RIGHT UPPER QUADRANT ULTRASOUND HISTORY: Hepatomegaly - RUQ US COMPARISON: 08/16/2013 Liver: 19.1 cm in length. Liver is moderately enlarged. Size has increased since the prior study. No mass or bile duct dilatation. Mild increased attenuation throughout the liver from hepatic steatosis. Portal Vein: Normal hepatopetal flow with monophasic waveform. Gallbladder: Status post cholecystectomy. CBD: 0.4 cm Pancreas: Normal size and echogenicity. Right kidney: 12.2 cm in length. Normal size and echogenicity. No hydronephrosis or mass. Aorta and IVC: Unremarkable abdominal aorta and IVC. No ascites. US/US abdomen limited [id number] IMPRESSION: 1. Prior cholecystectomy. 2. Moderate hepatic steatosis and hepatomegaly. Size of the liver and hepatic steatosis have increased since 2012.
== END 2023-01-21 06:48 | disposition home or self-care (01) ==
LOC: RAD 06:49
PROVIDERS: PCP Family Medicine; Visit Provider Family Medicine
DX: R16.0 Hepatomegaly, not elsewhere classified (principal); Z90.49 Acquired absence of other specified parts of digestive tract; K76.0 Fatty (change of) liver, not elsewhere classified
CPT/HCPCS: 76705

== ENCOUNTER → 2023-04-01 09:37 | Outpatient (BNVA) | payer MEDICARE, OTHER, SELFPAY | PROVIDERS: PCP Family Medicine; Visit Provider Family Medicine | DX: E11.9 Type 2 diabetes mellitus without complications (principal); R53.81 Other malaise; R53.83 Other fatigue; E53.8 Deficiency of other specified B group vitamins; Z51.81 Encounter for therapeutic drug level monitoring; E03.9 Hypothyroidism, unspecified; Z13.220 Encounter for screening for lipoid disorders | CPT/HCPCS: 80053; 80061; 82607; 83036; 84439; 84443; 85025 ==

== ENCOUNTER → 2023-05-27 08:41 | Outpatient (BNVA) | payer MEDICARE, OTHER, SELFPAY | PROVIDERS: PCP Family Medicine; Visit Provider Family Medicine | DX: E11.9 Type 2 diabetes mellitus without complications (principal); Z51.81 Encounter for therapeutic drug level monitoring | CPT/HCPCS: 80053 ==

== ENCOUNTER → 2023-07-15 09:09 | Outpatient (BNVA) | payer MEDICARE, OTHER, SELFPAY | PROVIDERS: PCP Family Medicine; Visit Provider Family Medicine | DX: Z51.81 Encounter for therapeutic drug level monitoring (principal); E11.9 Type 2 diabetes mellitus without complications; E53.8 Deficiency of other specified B group vitamins; R25.2 Cramp and spasm; Z13.220 Encounter for screening for lipoid disorders | CPT/HCPCS: 80053; 80061; 82550; 82607; 83036; 85025 ==

== ENCOUNTER 2023-08-19 06:42 | Outpatient (CLI) | payer MEDICARE, OTHER, SELFPAY ==
--- NOTE | 2023-08-19 07:15 | USCV_ITS ---
Christopher Ramirez Age: 68 Gender: M : 1955 Exam Date: 08/19/2023 06:54 Ordering Phys: Luis Armando Carreno MD (Andy) ([email or web address] [place]) Technologist: Dennis Dominguez Exam Location: [facility] [place] Indication: bilat carotid Risk Factors: Previous Vascular Surgery: Right Brachial BP: / Left Brachial BP: / Right Left Velocity (cm/s) Spectral Plaque Velocity (cm/s) Spectral Plaque Syst/Diast Broadening Syst/Diast Broadening 106.90/38.60 Prox CCA 97.40 / 31.60 92.60/ 24.30 Mid CCA 76.00 / 26.50 68.40/ 22.50 Distal CCA 70.90 / 15.40 69.90/ 21.80 Prox ICA 97.40 / 23.90 55.90/ 19.40 Mid ICA 85.40 / 27.30 60.70/ 22.20 Distal ICA 89.70 / 29.10 103.40 ECA 109.40 0.60 ICA/CCA 1.12 Antegrade Vertebral Antegrade 40.20/ 17.50 cm/s 41.00/ 6.80 cm/s Tri Subclavian Tri 67.70 103.4 0 CONCLUSIONS Right ICA stenosis <50%. Moderate calcified atheromatous plaque right carotid bulb/ICA. Left ICA stenosis <50%. Mild atheromatous plaque left carotid bulb/ICA. Normal antegrade Doppler flow noted in the right vertebral artery. Normal antegrade Doppler flow noted in the left vertebral artery. William Zaman MD (Electronically Signed) Final Date: 19 August 2023 09:07 S
== END 2023-08-19 06:43 | disposition home or self-care (01) ==
LOC: RAD 06:43
PROVIDERS: PCP Family Medicine; Visit Provider Thoracic Surgery (Cardiothoracic Vascular Surgery)
DX: I65.23 Occlusion and stenosis of bilateral carotid arteries (principal)
CPT/HCPCS: 93880

== ENCOUNTER → 2023-09-01 10:21 | Outpatient (BNVA) | payer MEDICARE, OTHER, SELFPAY | PROVIDERS: PCP Family Medicine; Visit Provider Thoracic Surgery (Cardiothoracic Vascular Surgery) | DX: Z98.890 Other specified postprocedural states (principal) | CPT/HCPCS: 99213 ==

== ENCOUNTER → 2023-10-14 08:44 | Outpatient (BNVA) | payer MEDICARE, OTHER, SELFPAY | PROVIDERS: PCP Family Medicine; Visit Provider Family Medicine | DX: E11.9 Type 2 diabetes mellitus without complications (principal); Z51.81 Encounter for therapeutic drug level monitoring; Z13.220 Encounter for screening for lipoid disorders | CPT/HCPCS: 80053; 80061; 83036; 85025 ==

== ENCOUNTER 2023-11-01 09:04 | Emergency (ER) | payer MEDICARE, OTHER, SELFPAY ==
[2023-11-01] VITALS (9 sets, daily range): BP systolic 132–185; BP diastolic 85–114; PULSE 75–92; RESP 18; TEMP 36.4; O2SAT 95–100; BMI 43.0
--- NOTE | 2023-11-01 09:57 | CT_ITS ---
WS: [id number] CT HEAD NONCONTRAST HISTORY: R sided headache TECHNIQUE: Contiguous axial imaging performed through the brain in 2.5 mm imaging. Bone and soft tiss ue windows. Sagittal and coronal reformats reviewed. All CT scans at [facility] use at least one of these dose optimization techniques: automated exposure control; mA and/or kV adjustment per pa tient size (includes targeted exams where dose is matched to clinical indication); or iterative recon struction. DLP: 1188.74 mGy.cm COMPARISON: 03/02/2019 No acute intracranial hemorrhage, midline shift or mass effect. Very mild atrophy and volume loss. Minimal small vessel ischemic disease. Ventricles: Normal size with no hydrocephalus. No inferior displacement of the cerebellar tonsils. Scattered calcified plaque in the intracranial ca rotid arteries. Paranasal sinuses: As visualized are clear. Mastoid air cells: Mild coalescence of mastoid air cells. Calvarium and scalp: Skull is intact with no soft tissue edema or swelling. IMPRESSION: 1. No acute intracranial hemorrhage or edema. 2. Stable noncontrast head CT.
--- NOTE | 2023-11-01 09:58 | W.ED.HA ---
HPI - Headache General: Chief Complaint: Headache Stated Complaint: head pains Time Seen by Provider: 11/01/23 09:07 Source: patient Mode of arrival: ambulatory Limitations: no limitations History of Present Illness: Patient is a nice 68-year-old male who presents to ED today with a complaint of pain to the right side of his head. Patient states symptoms started approximately 2 to 3 days ago. He reports having brief intermittent sharp shooting exacerbations starting around his right hinduism and extending into the right parietal region of his scalp. He has noticed that his scalp and hair are sensitive to the touch. No visual changes or eye pain. He does report recent procedure by Dr. Cruz to the left eye to remove floaters. He states in between exacerbations he still has pain, just not as intense. Reports some mild ear pain. Has not noticed any rash/lesions to the face/scalp. No gait disturbance. No trouble with speech. Denies N/V. MD elicited complaint: headache Onset (ago): day(s) Onset description: gradually Location: right, temporal and parietal Severity: moderate Quality & Timing: sharp and intermittent Exacerbating factors: none Relieving factors: nothing Associated symptoms: Deny chest pain, confusion, fever(s), lightheadedness, malaise, nausea, rash, syncope or vomiting Treatments prior to arrival: none Review of Systems Const: Denies: fever(s), chills, body aches, fatigue or malaise Eyes: Denies: change in vision, blurry vision, photophobia or seeing flashes ENMT: Reports: ear or mastoid pain; Denies: throat pain, odynophagia, nasal discharge, nasal congestion, post nasal drip or sinus pain Card: Denies: chest pain, palpitations, irregular heart rhythm, lightheadedness, syncope or dyspnea on exertion Resp: Denies: dyspnea, productive cough or pain on inspiration GI: Denies: abdominal pain, nausea, vomiting, heartburn or diarrhea : Denies: difficulty urinating or dysuria Musc: Denies: neck pain, back pain or joint pain Skin/Breast: Denies: rash Neuro: Reports: headache(s); Denies: numbness in extremities, weakness in extremities, sensory changes, difficulty walking, dizziness or confusion [facility] ED PFSH: Medical History CAD (coronary artery disease) Diabetes mellitus type 2, controlled Right rotator cuff tendonitis Hearing loss Chronic secretory otitis media Surgical History History of rotator cuff surgery History of cholecystectomy History of ear surgery (~11/2019) H/O carotid endarterectomy History of appendectomy Family History Father Diabetes Cancer Mother Cancer at age 81 - Breast cancer Social History Smoking and tobacco/nicotine status: former use of tobacco/nicotine Quit status (tobacco/nicotine): has quit using Alcohol intake: never Substance/Drug Use: never Physical Exam Const: COMMON NORMALS: no acute distress, patient oriented x3, no limitations, alert and well nourished GENERAL APPEARANCE: cooperative NUTRITIONAL APPEARANCE: obese ORIENTATION/CONSCIOUSNESS: Yes awake, Yes oriented to person, Yes oriented to place and Yes oriented to time HENMT: COMMON NORMALS: normocephalic, atraumatic, hearing grossly normal bilaterally, external ears normal, EAC's normal, TM's normal bilaterally, Normal external nose present, Normal nasal mucous membranes and turbinates present, moist oral mucous membranes and oropharynx normal HEAD & SCALP: normal to inspection, normocephalic and atraumatic FACE & SINUS: normal facial exam, sinuses nontender and face symmetric NOSE: Normal external nose present and Normal nasal mucous membranes and turbinates present EXTERNAL EAR: Yes external ears normal EXTERNAL AUDITORY CANAL: EAC's normal TYMPANIC MEMBRANE: TM's normal bilaterally MOUTH: Normal oral and palatal mucosa present and lip normal THROAT: posterior oropharynx normal Eye: COMMON NORMALS: Equal, round and reactive pupils present and EOMs intact bilaterally GENERAL EYE: appearance normal, both eyes and all related structures and normal light reflex PUPIL: Yes Equal, round and reactive pupils present DIRECT OPHTHALMOSCOPY: Yes normal light reflex Neck/C-Spine: COMMON NORMALS: full ROM, no lymphadenopathy, supple and no meningeal signs Chest: COMMONS NORMALS: normal inspection of the chest Resp: COMMON NORMALS: normal respiratory effort and clear to auscultation bilaterally AUSCULTATION: clear to auscultation bilaterally Cardio: COMMON NORMALS: regular rate and regular rhythm RATE: regular rate RHYTHM: regular rhythm Neuro: LATOSHA COMA SCALE: document GCS findings [place] coma scale eye opening: Spontaneous Latosha coma scale verbal response: Orientated Latosha coma scale motor response: Obey commands Latosha coma scale total score: 15 COMMON NORMALS: patient oriented x3, CN's II-XII intact bilaterally, moves all extremities, no focal motor deficits, no sensory deficits noted and gait normal SENSORIUM/ORIENTATION: Yes alert, Yes oriented to person, Yes oriented to place and Yes oriented to time MENINGEAL SIGNS: Yes no meningeal signs Skin: COMMON NORMALS: no rashes or lesions noted GENERAL SKIN EXAM: no rashes or lesions noted Course Vital Signs: Vital signs: Vital Signs Temperature 97.6 F 11/01/23 09:34 Pulse Rate 77 11/01/23 12:44 Respiratory Rate 18 11/01/23 09:34 Blood Pressure 135/90 11/01/23 12:44 Pulse Oximetry 98 11/01/23 12:44 Oxygen Delivery Me thod Room Air 11/01/23 12:18 Oxygen Flow Rate 12 11/01/23 10:20 MDM - Headache Medical Decision Making Patient here for sharp stabbing intermittent pains to R temporal/parietal scalp. CT head negative. No neurologic deficits noted by history or physical exam. No rash to suggest shingles although he was counselled on seeking medical re-evaluation if rash/lesions occur. DDx includes cluster headache although he has none of the autonomic symptoms with this. He was trialed on high volume O2 here without any improvement. Other DDx includes trigeminal neuralgia, primary stabbing headache, unilateral neuralgiform headache, hypertension headache (BP was elevated upon arrival-this was initially not treated hoping it would come down on its own as he states his blood pressure is normally okay-plan was to treat headache in hopes that this would improve blood pressure as well however bp continued to elevated so bp meds were ordered-bp trending down but had no effect on his headache). I will start patient on Indomethacin for treatment of a primary stabbing headache and have him follow up with primary care later this week for further evaluation. Return to ED precautions given here. All radiology interpretation(s) finalized by discharge Discharge Plan Discharge Patient Disposition: Home Clinical Impression: Headache Qualifiers: Headache type: unspecified Headache chronicity pattern: acute headache Intractability: intractable Qualified Code(s): R51.9 - Headache, unspecified Condition: Stable Prescriptions: New indomethacin 75 mg capsule, extended release 75 mg PO DAILY Qty: 7 0RF No Action insulin glargine [Lantus Solostar U-100 Insulin] 100 unit/mL (3 mL) insulin pen 44 unit SUBCUT QAM (DME) Premier Test Strip Strip See Rx Instructions .ROUTE .COMPLEX Qty: 300 3RF Dose Instruction: USE DIRECTED TO MONITOR BLOOD SUGAR THREE TIMES DAILY Rx Instructions: to use TID with primier meter 90 supply (DME) lancets [Ultra Thin Lancets] 30 gauge misc See Rx Instructions .ROUTE .COMPLEX Qty: 300 3RF Dose Instruction: USE DIRECTED TO MONITOR BLOOD SUGAR THREE TIME DAILY Rx Instructions: to use TID to check blood sugar 90 supply (DME) blood-glucose meter [Premier Classic Glucose Meter] [facility] [place] See Rx Instructions .Route Qty: 1 0RF Rx Instructions: to use TID to check blood sugar (DME) OneTouch Ultra Test Strip See Rx Instructions .Route Qty: 100 12RF Rx Instructions: Use one strip to test blood glucose three times a day (DME) blood-glucose meter [OneTouch Ultra2 Meter] [facility] [place] See Rx Instructions .Route Qty: 1 0RF Rx Instructions: Use to test blood gluose three times a day (DME) lancets [OneTouch Delica Plus Lancet] 33 gauge misc See Rx Instructions .ROUTE .MEDSUPPLY Qty: 100 12RF Rx Instructions: use to test blood glucose three times a day (DME) pen needle, diabetic [BD Nasreen 2nd Gen Pen Needle] 32 gauge x 5/32 needle See Rx Instructions .ROUTE .COMPLEX Qty: 100 12RF Dose Instruction: USE DIRECTED Rx Instructions: USE DIRECTED aspirin 81 mg Tablet,Delayed Release (Dr/Ec) 81 mg PO QPM clopidogrel 75 mg tablet 75 mg PO QPM Zetia 10 mg tablet 10 mg PO QPM Discharge Orders: Discharge ED (Routine); Ordered 11/01/23 Ordered By: Jossy Lopez Referrals: Shakeel Fulton MD [Primary Care Provider] - Patient Instructions: Acute Headache (DC) Activity Restrictions/Additional Instructions: As we discussed I would like you to follow-up with your primary care provider later this week for re-evaluation. Start a blood pressure log so if blood pressure continues to be elevated he can start you on hypertensive medication. I am starting you on a medication to take once daily to see if this improves your headache. If headache does not improve you may require further evaluation/workup/referral to neurology. You need to return to the emergency department for visual changes, trouble with walking/ambulating, slurred speech, severe constant headache, rash to your scalp, face, ear, eye, or any other concerns you may have. Coding Level of Care Code ED Packing Inspector for Alyssa Miller
--- NOTE | 2023-11-01 10:21 | PC.NURSE ---
pt placed on NRB 12 liters per provider.
--- NOTE | 2023-11-01 10:38 | PC.NURSE ---
discontinued NRB pt had no headache improvement.
[2023-11-01] MEDS: diphenhydrAMINE 50 mg/mL SDV 1mL 25 MG IVP (10:46)
[2023-11-01] MEDS: dexamethasone 4 mg/mL INJ 8 MG IVP (10:46)
[2023-11-01] MEDS: ketorolac 30 mg/mL INJ 15 MG IVP (10:46)
[2023-11-01] MEDS: hyDRALAzine 20 mg/mL INJ 1 mL 10 MG IVP (11:31)
[2023-11-01] MEDS: labetalol 5 mg/mL SDV 20mL 10 MG IVP (11:31)
[2023-11-01] MEDS: SUMAtriptan 6 mg/0.5 mL SDV SUBCUT (12:19)
== END 2023-11-01 12:45 | disposition home or self-care (01) ==
PROVIDERS: Emergency Provider Physician Assistant; PCP Family Medicine
DX: R51.9 Headache, unspecified (principal); Z79.02 Long term (current) use of antithrombotics/antiplatelets; Z79.82 Long term (current) use of aspirin; Z79.4 Long term (current) use of insulin; I25.10 Atherosclerotic heart disease of native coronary artery without angina pectoris; E11.9 Type 2 diabetes mellitus without complications; Z87.891 Personal history of nicotine dependence
CPT/HCPCS: 70450; 96372; 96374; 96375; 96376; 99285; J0360; J1100; J1200; J1885; J3030; J3490

== ENCOUNTER → 2023-11-18 08:12 | Outpatient (BNVA) | payer MEDICARE, SELFPAY | PROVIDERS: PCP Family Medicine; Visit Provider Family Medicine | DX: R51.9 Headache, unspecified (principal); Z51.81 Encounter for therapeutic drug level monitoring; I10 Essential (primary) hypertension | CPT/HCPCS: 85025; 85651 ==

== ENCOUNTER → 2023-12-29 08:15 | Outpatient (BNVA) | payer MEDICARE, OTHER, SELFPAY | PROVIDERS: PCP Family Medicine; Visit Provider Surgery | DX: R70.0 Elevated erythrocyte sedimentation rate (principal); H91.90 Unspecified hearing loss, unspecified ear; R51.9 Headache, unspecified | CPT/HCPCS: 99204 ==

== ENCOUNTER 2024-01-17 05:33 | Day surgery (SDC) | payer MEDICARE, OTHER, SELFPAY ==
[2024-01-17] VITALS (11 sets, daily range): BP systolic 112–167; BP diastolic 61–98; PULSE 90–113; RESP 16–20; TEMP 36.1–36.6; O2SAT 90–97; BMI 43.8
[2024-01-17 06:09] LABS: Glucose Point of Care 113 mg/dL (70-110)
[2024-01-17] MEDS: sodium chloride 0.9% 1,000 ML 30 ML IV (06:15)
--- NOTE | 2024-01-17 06:35 | ANES.PREANE2 ---
Pre-Anesthetic Assessment Height/Weight: Height 1.7 m Weight 127.006 kg Temp Pulse Resp BP Pulse Ox O2 Del Method 97.4 F L 90 17 167/98 94 Room Air 01/17/24 06:01 01/17/24 06:01 01/17/24 06:01 01/17/24 06:01 01/17/24 06:01 01/17/24 06:01 Operation Date: 01/17/24 07:00 Proposed Procedures p [id number] bilateral temporal bx R51.9(Bilateral) - Kt Fiore DO Familial anesthetic complications: None Was Beta Katherin taken within 24 hours: N/A Was Clonidine taken within 24 hours: N/A Last intake: Intake Last Liquid Date 01/16/24 Last Liquid Time 23:50 Last Solid Date 01/16/24 Last Solid Time 08:00 Social No alcohol and No tobacco Exam alert, oriented x 3, clear to auscultation bilaterally and regular rate & rhythm Airway Mallampati: Class IV Dentition: partials Pulmonary Sleep Apnea CV/HEM Coronary Artery Disease and Hypertension Metabolic Diabetes Mellitus and Morbid Obesity Anesthetic Plan ASA status: 3 Anesthesia: Choice Risk of > 500 ml blood loss (7ml/kg in children): No Medications/Allergies Home Medications Medication Instructions Recorded Confirmed Last Taken Type aspirin 81 mg tablet,delayed 81 mg PO QPM 12/03/19 01/17/24 01/16/24 History release blood sugar diagnostic (Premier #300 ea 05/30/23 01/16/24 Unknown Rx Test Strip) blood-glucose meter (Premier #1 ea 05/30/23 01/16/24 Unknown Rx Classic Glucose Meter) lancets 30 gauge (Ultra Thin #300 ea 05/30/23 01/16/24 Unknown Rx Lancets) blood sugar diagnostic (OneTouch #100 ea 06/01/23 01/16/24 Unknown Rx Ultra Test strips) blood-glucose meter (OneTouch #1 ea 06/01/23 01/16/24 Unknown Rx Ultra2 Meter) lancets 33 gauge (OneTouch Delica #100 ea 06/02/23 01/16/24 Unknown Rx Plus Lancet) pen needle, diabetic 32 gauge x #100 ea 07/05/23 01/16/24 Unknown Rx 5/32 (BD Nasreen 2nd Gen Pen Needle) ezetimibe 10 mg tablet (Zetia) 10 mg PO QPM 11/01/23 01/17/24 01/16/24 History losartan 50 mg-hydrochlorothiazide 1 tab PO DAILY #30 tabs 12/02/23 01/16/24 01/16/24 Rx 12.5 mg tablet prednisone 20 mg tablet 40 mg (2 x 20 mg) PO DAILY #60 tabs 12/02/23 01/16/24 01/16/24 Rx clopidogrel 75 mg tablet 75 mg PO DAILY 01/16/24 01/16/24 01/12/24 History insulin glargine 100 unit/mL (3 55 unit SUBCUT QAM 01/16/24 01/16/24 01/16/24 History mL) subcutaneous pen (Basaglar KwikPen U-100 Insulin) Allergies Allergy/AdvReac Type Severity Reaction Status Date / Time acetaminophen [From Percocet] Allergy ADR-Confusi Verified 01/17/24 06:00 on oxycodone [From Percocet] Allergy ADR-Confusi Verified 01/17/24 06:00 on Current Medications Generic Name Dose Route Start Last Admin Trade Name Freq PRN Reason Stop Dose Admin Sodium Chloride 1,000 mls @ 30 mls/hr 01/17/24 06:00 01/17/24 06:15 Sodium Chloride 0.9% IV 01/18/24 05:59 30 mls/hr .Q24H VERA Administration PFSH Anesthesia Medical History CAD (coronary artery disease) Diabetes mellitus type 2, controlled Right rotator cuff tendonitis Hearing loss Chronic secretory otitis media Surgical History History of rotator cuff surgery History of cholecystectomy History of ear surgery (~11/2019) H/O carotid endarterectomy History of appendectomy Family History Father Diabetes Cancer Mother Cancer at age 81 - Breast cancer Social History Smoking and tobacco/nicotine status: former use of tobacco/nicotine Quit status (tobacco/nicotine): has quit using Alcohol intake: never Substance/Drug Use: never Data Anesthesia Cardiac Studies: No Data to Display
[2024-01-17] MEDS: ceFAZolin 3,000 MG in sodium chloride 0.9% (plus) 100 ML 200 MG IV (07:00)
--- NOTE | 2024-01-17 07:00 | W.PM.OPSUD ---
Surgery/Procedure H&P Update DATE OF PROCEDURE: January 17, 2024 DATE H&P PERFORMED: 12/29/23 H&P UPDATE INFORMATION: I have reviewed H&P completed within last 30 days, I have examined patient prior to procedure and No changes to prior documentation PLANNED PROCEDURE: Operation Date: 01/17/24 07:00 Proposed Procedures p 19740 bilateral temporal bx R51.9(Bilateral) - Kt Fiore DO
[2024-01-17] MEDS: lidocaine 2% INJ 20 mL INJECTION (08:31)
--- NOTE | 2024-01-17 09:39 | PM.OP ---
Operative Report Date of procedure: January 17, 2024 Pre-op diagnosis: Rule out temporal arteritis Post-op diagnosis: same Procedure done: Bilateral temporal artery biopsies Implants: None Specimens removed/disposition: Left and right superficial temporal arteries Surgeon: Kt Fiore DO Anesthesia: General and Local Estimated blood loss (mL): 30 Complications: None apparent Brief History: This is a very pleasant 68-year-old gentleman who is currently being treated for suspected temporal arteritis. Bilateral temporal artery biopsies were indicated. The risk and benefits were explained and documented. Procedure: Patient was wheeled into the room and placed on the OR table in supine position. The bilateral temples were inspected prepped and draped in usual sterile fashion. A timeout was performed and all present were in agreement. I began on the patient's left side. The left temporal artery was palpated and dopplered, just anterior and superior to the ear. The site was marked and 2% lidocaine with epinephrine was used to anesthetize the skin and hydrodissect the subcutaneous tissue away from the artery. A 3 cm vertical incision was made at the site marked. Dissection was carried down to the fascia with cautery and blunt dissection. The fascia was opened with iris scissors, vertically, on each side of the temporal artery. The temporal artery was isolated and ligated proximally distally with 3-0 silk. A sample of the artery measuring proximately 2 cm was excised and sent to pathology. Hemostasis was achieved with electrocautery. Dermis was approximated with 3-0 Vicryl and skin was closed with Dermabond. Attention was then brought to the patient's right side. The right temporal artery was palpated and dopplered, just anterior and superior to the ear. The site was marked and 2% lidocaine with epinephrine was used to anesthetize the skin and hydrodissect the subcutaneous tissue away from the artery. A 3 cm vertical incision was made at the site marked. Dissection was carried down to the fascia with cautery and blunt dissection. The fascia was opened with iris scissors, vertically, on each side of the temporal artery. The temporal artery was isolated and ligated proximally distally with 3-0 silk. A sample of the artery measuring proximately 2 cm was excised and sent to pathology. Hemostasis was achieved with electrocautery. Dermis was approximated with 3-0 Vicryl and skin was closed with Dermabond. Patient tolerated the procedure well.
[2024-01-17] MEDS: HYDROcodone-acetaminophen 7.5-325 mg Tablet 1 TAB PO (10:26)
--- NOTE | 2024-01-17 10:45 | ANE.PACU2 ---
Inpatient post-anesthesia follow up: Airway intact: Yes Vital signs: Temperature 98 F Pulse Rate 97 Respiratory Rate 16 Blood Pressure 141/82 Pulse Oximetry 95 Oxygen Delivery Me thod Room Air Oxygen Flow Rate 6 Fraction of Inspir ed Oxygen Hydration adequate: Yes Nausea and vomiting: No Pain level: 1 Mental status: Baseline
--- NOTE | 2024-01-17 10:59 | SUR.PHASEII ---
1045 patient brought to ER to be with daughter,pt's son and brother notified,pt waiting to see daughter, ER admissions informed of this and verbalized understanding
== END 2024-01-17 10:45 | disposition home or self-care (01) ==
PROVIDERS: PCP Family Medicine; Visit Provider Surgery
PROC: (CPT 37609; principal; 2024-01-17 07:00)
DX: M31.6 Other giant cell arteritis (principal); G47.30 Sleep apnea, unspecified; I25.10 Atherosclerotic heart disease of native coronary artery without angina pectoris; I10 Essential (primary) hypertension; E11.9 Type 2 diabetes mellitus without complications; E66.01 Morbid (severe) obesity due to excess calories; Z68.41 Body mass index [BMI] 40.0-44.9, adult; Z79.82 Long term (current) use of aspirin; Z87.891 Personal history of nicotine dependence
CPT/HCPCS: 37609; 36416; 82962; 88312; 88342; J0330; J0690; J1100; J2371; J2405; J2704; J3010; J3490; J7030

== ENCOUNTER → 2024-01-20 10:12 | Outpatient (BNVA) | payer MEDICARE, OTHER, SELFPAY | PROVIDERS: PCP Family Medicine; Visit Provider Family Medicine | DX: R70.0 Elevated erythrocyte sedimentation rate (principal); R51.9 Headache, unspecified; E11.9 Type 2 diabetes mellitus without complications; H91.90 Unspecified hearing loss, unspecified ear; Z51.81 Encounter for therapeutic drug level monitoring | CPT/HCPCS: 83036; 85025; 85651; 86141 ==

== ENCOUNTER → 2024-02-03 07:58 | Outpatient (BNVA) | payer MEDICARE, OTHER, SELFPAY | PROVIDERS: PCP Family Medicine; Visit Provider Surgery | DX: Z98.890 Other specified postprocedural states (principal); Z12.11 Encounter for screening for malignant neoplasm of colon | CPT/HCPCS: 99024; 99214 ==

== ENCOUNTER 2024-03-14 06:36 | Day surgery (SDC) | payer MEDICARE, OTHER, SELFPAY ==
[2024-03-14 06:57] VITALS: BP 146/83; PULSE 84; RESP 18; TEMP 36.3; O2SAT 96; BMI 44.4
[2024-03-14] MEDS: sodium chloride 0.9% 1,000 ML 30 ML IV (06:59)
[2024-03-14 07:13] LABS: Glucose Point of Care 120 mg/dL (70-110)
--- NOTE | 2024-03-14 07:26 | P.ANESASSM_ITS ---
Pre-Anesthetic Assessment Height/Weight: Height 1.7 m Weight 128.82 kg Temp Pulse Resp BP Pulse Ox O2 Del Method 97.4 F L 84 18 146/83 96 Room Air 03/14/24 06:57 03/14/24 06:57 03/14/24 06:57 03/14/24 06:57 03/14/24 06:57 03/14/24 06:57 Preop Diagnosis: screening Operation Date: 03/14/24 07:45 Proposed Procedures p 06231 colonoscopy G0105 screen coolon h risk Z12.11(Not Applicable) - Kt Fiore, DO Was Beta Katherin taken within 24 hours: Yes Last intake: Intake Last Liquid Date 03/13/24 Last Liquid Time 23:15 Last Solid Date 03/12/24 Last Solid Time 20:00 Social No alcohol and No tobacco Exam alert, oriented x 3, clear to auscultation bilaterally and regular rate & rhythm Airway Submandibular: within normal limits Cervical ROM: within normal limits Mallampati: Class IV Dentition: partials History/ROS No significant history except as noted and No significant complaints Pulmonary Sleep Apnea CV/HEM Hypertension CEA years ago no residual, no stroke symptoms. METS > 4 None reported Hepatic None reported GI None reported Metabolic Diabetes Mellitus and Morbid Obesity [facility] [place] None reported Neuropsych None reported Anesthetic Plan ASA status: 3 Anesthesia: Anesthesia Evaluation and MAC Risk of > 500 ml blood loss (7ml/kg in children): Yes, adequate IV access and fluids planned Medications/Allergies Home Medications Medication Instructions Recorded Confirmed Last Taken Type blood sugar diagnostic (Premier #300 ea 05/30/23 03/14/24 Unknown Rx Test Strip) blood-glucose meter (Premier #1 ea 05/30/23 03/14/24 Unknown Rx Classic Glucose Meter) lancets 30 gauge (Ultra Thin #300 ea 05/30/23 03/14/24 Unknown Rx Lancets) blood sugar diagnostic (OneTouch #100 ea 06/01/23 03/14/24 Unknown Rx Ultra Test strips) blood-glucose meter (OneTouch #1 ea 06/01/23 03/14/24 Unknown Rx Ultra2 Meter) lancets 33 gauge (OneTouch Delica #100 ea 06/02/23 03/14/24 Unknown Rx Plus Lancet) pen needle, diabetic 32 gauge x #100 ea 07/05/23 03/14/24 Unknown Rx 5/32 (BD Nasreen 2nd Gen Pen Needle) clopidogrel 75 mg tablet 75 mg PO DAILY 01/16/24 03/14/24 03/08/24 History hydrochlorothiazide 25 mg tablet 25 mg PO DAILY #30 tabs 01/20/24 03/14/24 03/11/24 Rx losartan 50 mg tablet 50 mg PO DAILY #30 tabs 01/20/24 03/14/24 03/11/24 Rx ezetimibe 10 mg tablet 10 mg PO DAILY 03/12/24 03/14/24 03/11/24 History insulin glargine 100 unit/mL (3 66 unit SUBCUT QAM 03/12/24 03/14/24 03/13/24 History mL) subcutaneous pen (Basaglar KwikPen U-100 Insulin) Allergies Allergy/AdvReac Type Severity Reaction Status Date / Time acetaminophen [From Percocet] Allergy ADR-Confusi Verified 03/14/24 06:52 on oxycodone [From Percocet] Allergy ADR-Confusi Verified 03/14/24 06:52 on Current Medications Generic Name Dose Route Start Last Admin Trade Name Freq PRN Reason Stop Dose Admin Sodium Chloride 1,000 mls @ 30 mls/hr 03/14/24 06:45 03/14/24 06:59 Sodium Chloride 0.9% IV 03/15/24 06:44 30 mls/hr .Q24H VERA Administration PFSH Anesthesia Medical History CAD (coronary artery disease) Diabetes mellitus type 2, controlled Right rotator cuff tendonitis Hearing loss Chronic secretory otitis media Surgical History History of neck surgery History of temporal artery biopsy 01/17/24 Dr. Fiore History of rotator cuff surgery History of cholecystectomy History of ear surgery (~11/2019) H/O carotid endarterectomy History of appendectomy Family History Father Diabetes Cancer Mother Cancer at age 81 - Breast cancer Social History Smoking and tobacco/nicotine status: former use of tobacco/nicotine Quit status (tobacco/nicotine): has quit using Alcohol intake: never Substance/Drug Use: never Data Anesthesia Cardiac Studies: No Data to Display
--- NOTE | 2024-03-14 08:05 | PM.HP ---
Providers/Chief Complaint Primary Care Provider: Shakeel Fulton MD Chief Complaint: Z12.11 History of Present Illness Christopher Ramirez is a 68 year old male Review of Systems General: Reports: 10 or more systems reviewed and unremarkable except in HPI and below Medications/Allergies Home Medications Medication Instructions Recorded Confirmed Last Taken Type blood sugar diagnostic (Premier #300 ea 05/30/23 03/14/24 Unknown Rx Test Strip) blood-glucose meter (Premier #1 ea 05/30/23 03/14/24 Unknown Rx Classic Glucose Meter) lancets 30 gauge (Ultra Thin #300 ea 05/30/23 03/14/24 Unknown Rx Lancets) blood sugar diagnostic (OneTouch #100 ea 06/01/23 03/14/24 Unknown Rx Ultra Test strips) blood-glucose meter (OneTouch #1 ea 06/01/23 03/14/24 Unknown Rx Ultra2 Meter) lancets 33 gauge (OneTouch Delica #100 ea 06/02/23 03/14/24 Unknown Rx Plus Lancet) pen needle, diabetic 32 gauge x #100 ea 07/05/23 03/14/24 Unknown Rx 5/32 (BD Nasreen 2nd Gen Pen Needle) clopidogrel 75 mg tablet 75 mg PO DAILY 01/16/24 03/14/24 03/08/24 History hydrochlorothiazide 25 mg tablet 25 mg PO DAILY #30 tabs 01/20/24 03/14/24 03/11/24 Rx losartan 50 mg tablet 50 mg PO DAILY #30 tabs 01/20/24 03/14/24 03/11/24 Rx ezetimibe 10 mg tablet 10 mg PO DAILY 03/12/24 03/14/24 03/11/24 History insulin glargine 100 unit/mL (3 66 unit SUBCUT QA 03/12/24 03/14/24 03/13/24 History mL) subcutaneous pen (Basaglar KwikPen U-100 Insulin) Allergies Allergy/AdvReac Type Severity Reaction Status Date / Time acetaminophen [From Percocet] Allergy ADR-Confusi Verified 03/14/24 06:52 on oxycodone [From Percocet] Allergy ADR-Confusi Verified 03/14/24 06:52 on PFSH Acute PFSH: Medical History CAD (coronary artery disease) Diabetes mellitus type 2, controlled Right rotator cuff tendonitis Hearing loss Chronic secretory otitis media Surgical History History of neck surgery History of temporal artery biopsy 01/17/24 Dr. Fiore History of rotator cuff surgery History of cholecystectomy History of ear surgery (~11/2019) H/O carotid endarterectomy History of appendectomy Family History Father Diabetes Cancer Mother Cancer at age 81 - Breast cancer Social History Smoking and tobacco/nicotine status: former use of tobacco/nicotine Quit status (tobacco/nicotine): has quit using Alcohol intake: never Substance/Drug Use: never Vitals/I&O/Wt Last Vital Signs Temp 97.4 F L 03/14/24 06:57 Pulse 84 03/14/24 06:57 Resp 18 03/14/24 06:57 BP 146/83 03/14/24 06:57 Pulse Ox 96 03/14/24 06:57 O2 Del Method Room Air 03/14/24 06:57 Weight last 48 hrs Weight 284 lb Physical Exam Narrative: General : Patient is well developed , no acute distress, oriented x3 Head : Normal cephalic, a-traumatic. Ears : Pinnae and external canal are normal. Hearing is normal. Eyes : PERRLA, Sclera and injection are normal. No conjunctival discharge. Nose : Mucous membranes are without erythema. Throat : buccal mucosa is normal, gums are without significant recession or hypertrophy. Lungs : Equal chest rise bilaterally, no use of accessory muscles, trachea is midline. Cor : Rate and rhythm are normal. Abdomen : Soft, ND, NT, no g/r/m Extremities : No edema, no cyanosis or clubbing, dorsalis pedis pulses are present bilaterally, non-tender to palpation of calves. Upper extremities are normal bilaterally. Back : non-tender to palpation, no CVA tenderness. Neuro : CN II - XII intact, Upper and lower extremities have equal and full strength A&P Assessment and plan (1) Colon cancer screening: Plan Colonoscopy Attestations Medical Necessity Statement*: Home Coding Level of Care Code Acute Code for Chg Fwd Diagnoses Colon cancer screening Z12.11
[2024-03-14 08:23] VITALS: BP 145/76; PULSE 87; RESP 18; TEMP 36.1; O2SAT 95
[2024-03-14 08:42] VITALS: BP 139/76; PULSE 84; RESP 18; O2SAT 97
--- NOTE | 2024-03-14 14:03 | ANE.PACU2 ---
Inpatient post-anesthesia follow up: Vital signs: Temperature 97 F Pulse Rate 84 Respiratory Rate 18 Blood Pressure 139/76 Pulse Oximetry 97 Oxygen Delivery Me thod Room Air Oxygen Flow Rate Fraction of Inspir ed Oxygen Hydration adequate: Yes Nausea and vomiting: No Mental status: Baseline Additional Comments: no apparent anesthetic complications noted
== END 2024-03-14 09:07 | disposition home or self-care (01) ==
PROVIDERS: PCP Family Medicine; Visit Provider Surgery
PROC: 0DJD8ZZ Inspection of Lower Intestinal Tract, Via Natural or Artificial Opening Endoscopic (ICD-10-PCS; CPT 45378; principal; 2024-03-14 07:45)
DX: Z12.11 Encounter for screening for malignant neoplasm of colon (principal); I25.10 Atherosclerotic heart disease of native coronary artery without angina pectoris; E11.9 Type 2 diabetes mellitus without complications; Z87.891 Personal history of nicotine dependence; D12.5 Benign neoplasm of sigmoid colon; K57.30 Diverticulosis of large intestine without perforation or abscess without bleeding; K64.8 Other hemorrhoids; G47.30 Sleep apnea, unspecified; I10 Essential (primary) hypertension; E66.01 Morbid (severe) obesity due to excess calories; Z68.41 Body mass index [BMI] 40.0-44.9, adult
CPT/HCPCS: 36416; 45385; 82962; 88305; J2704; J7030

== ENCOUNTER → 2024-03-30 08:35 | Outpatient (BNVA) | payer MEDICARE, SELFPAY | PROVIDERS: PCP Family Medicine; Visit Provider Surgery | DX: Z09 Encounter for follow-up examination after completed treatment for conditions other than malignant neoplasm (principal); K63.5 Polyp of colon; K64.8 Other hemorrhoids; M79.604 Pain in right leg; M79.605 Pain in left leg; R70.0 Elevated erythrocyte sedimentation rate; Z90.49 Acquired absence of other specified parts of digestive tract | CPT/HCPCS: 85651; 86141; 99214 ==

== ENCOUNTER → 2024-04-20 09:46 | Outpatient (BNVA) | payer MEDICARE, SELFPAY | PROVIDERS: PCP Family Medicine; Visit Provider Family Medicine | DX: M25.50 Pain in unspecified joint (principal); E11.9 Type 2 diabetes mellitus without complications; Z51.81 Encounter for therapeutic drug level monitoring; M79.604 Pain in right leg; M79.605 Pain in left leg; I10 Essential (primary) hypertension; Z79.899 Other long term (current) drug therapy | CPT/HCPCS: 80053; 83036; 86038; 86431 ==

== ENCOUNTER → 2024-08-27 12:21 | Outpatient (BNVA) | payer MEDICARE, OTHER, SELFPAY | PROVIDERS: PCP Family Medicine; Visit Provider Family Medicine | DX: Z13.220 Encounter for screening for lipoid disorders (principal); Z51.81 Encounter for therapeutic drug level monitoring; E11.9 Type 2 diabetes mellitus without complications; E53.8 Deficiency of other specified B group vitamins; R35.0 Frequency of micturition | CPT/HCPCS: 80053; 80061; 82306; 82607; 83036; 84153; 85025 ==

== ENCOUNTER 2024-09-14 08:37 | Outpatient (CLI) | payer MEDICARE, OTHER, SELFPAY ==
--- NOTE | 2024-09-14 08:40 | XR_ITS ---
WS: [id number] Left foot, 3 views, 09/14/2024 Clinical Data: Stepped on needle - possible FB still present Comparison: None. Findings: No fractures or dislocations are seen. No bone destruction or erosion is noted. The joint spaces and soft tissues are normal. No radiopaque foreign body is seen in the subcutaneous soft tissue. XR/XR foot LT min 3V* [id number] Impression: Negative for radiopaque foreign body.
== END 2024-09-14 08:38 | disposition home or self-care (01) ==
LOC: RAD 08:40
PROVIDERS: PCP Family Medicine; Visit Provider Family Medicine
DX: M79.672 Pain in left foot (principal)
CPT/HCPCS: 73630

== ENCOUNTER 2024-09-20 07:15 | Outpatient (CLI) | payer MEDICARE, OTHER, SELFPAY ==
--- NOTE | 2024-09-20 07:30 | USCV_ITS ---
Christopher Ramirez Age: 69 Gender: M : 1955 Exam Date: 09/20/2024 07:28 Ordering Phys: Shakeel Fulton MD Technologist: USR Exam Location: [facility] [place] Indication: prior endarterectomy of the left carotid Risk Factors: Previous Vascular Surgery: Right Brachial BP: / Left Brachial BP: / Right Left Velocity (cm/s) Spectral Plaque Velocity (cm/s) Spectral Plaque Syst/Diast Broadening Syst/Diast Broadening 94.20/ 23.40 Prox CCA 71.00 / 22.40 70.30/ 14.90 Mid CCA 88.10 / 25.20 86.10/ 27.80 Distal CCA 86.20 / 34.40 55.60/ 17.90 Prox ICA 34.30 / 9.30 58.70/ 21.00 Mid ICA 43.60 / 5.30 63.30/ 29.90 Distal ICA 66.70 / 25.90 105.20 ECA 116.60 0.70 ICA/CCA 0.80 Antegrade Vertebral Antegrade 21.30/ 7.10 cm/s 35.80/ 11.70 cm/s Tri Subclavian Tri 100.5 46.10 0 CONCLUSIONS Right ICA stenosis <50%. Mild atheromatous plaque right carotid bulb/ICA. Left ICA stenosis <50%. Prior LEFT CEA. Mild atheromatous plaque left carotid bulb/ICA. Intimal thickening in the common carotid arteries and internal carotid arteries bilaterally. Normal antegrade Doppler flow noted in the right vertebral artery. Normal antegrade Doppler flow noted in the left vertebral artery. William Zaman MD (Electronically Signed) Final Date: 20 September 2024 12:28 S
== END 2024-09-20 07:16 | disposition home or self-care (01) ==
PROVIDERS: PCP Family Medicine; Visit Provider Family Medicine
DX: I65.23 Occlusion and stenosis of bilateral carotid arteries (principal); R42 Dizziness and giddiness; Z98.890 Other specified postprocedural states; M79.604 Pain in right leg; M79.605 Pain in left leg
CPT/HCPCS: 86140; 86200; 93880

== ENCOUNTER 2024-09-21 09:16 | Outpatient (CLI) | payer MEDICARE, OTHER, SELFPAY ==
--- NOTE | 2024-09-21 | ECG_ITS ---
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 Interpretive Statements Lung unchange PROCEDURE: At the baseline, the EKG revealed normal sinus rhythm with nonspecific T wave changes. The baseline heart was 65 bpm with a blood pressue of 126/87 mm of Hg Lexiscan was infused over a period of 20 seconds. A total of 0.4 milligrams of Lexiscan was infused. The stress phase was continued for a total of 5 minutes. Heart rate at the end of the stress phase was 78 bpm with a blood pressure 127/84 mm of Hg. The EKG at the peak infusion revealed no significant changes. Sestamibi was injected 20 seconds after the Lexiscan infusion. Heart rate at the end of the recovery phase was 73 bpm with a blood pressure of 144/88 mm of Hg. CONCLUSION: 1. No significant EKG changes with the LexiScan infusion 2. No LexiScan induced chest pain or cardiac arrhythmia 3. Normal blood pressure and heart rate response 4. Sestamibi/sestamibi perfusion scan pending; see separate report.d pre/post procedure; Intraprocedure shortess of breath; Symptoms resoled by discharge Electronically Signed On 09-23-2024 22:10:21 CDT by Madalyn Downey M.D. [id number]
[2024-09-21 09:39] VITALS: BMI 43.0
--- NOTE | 2024-09-21 09:42 | NMCV_ITS ---
NM april perf SPECT r/s* [id number] Christopher Ramirez Age: 69 Gender: M : 1955 Exam Date: 09/21/2024 10:14 Ordering Phys: Shakeel Fulton MD Technologist: AJAY Harman Exam [facility] Indications: cp STRESS TEST Please see separate stress test report in [facility] for full findings IMAGE PROTOCOL Rest/Stress 1 Lexiscan Day Radiopharmaceutical Dose (mCi) Administration Site Administered by Rest: Tc-99m 9.6 IV AJAY Urban Sestamibi Stress:Tc-99m 28.2 IV AJAY Urban Sestamibi Rest: 21-Sep-2024 60 Discovery 630 Stress: 21-Sep-2024 30 Discovery 630 0.4mg Lexiscan. Supine position only as patient was unable to lay prone. SPECT RESULTS Technical Quality: Good Raw Data Analysis: Normal Image Corrections: No attenuation or motion correction applied Summed Stress Score: 0 Summed Rest Score: 1 Summed Difference Score: 0 PERFUSION FINDINGS Fairly uniform myocardial tracer uptake with no significant Perfusion abnormalities FUNCTIONAL RESULTS (calculated via Gated SPECT) Stress Image LV EF (%): 71 Stress EDV (mL):75 TID: 1 Stress ESV (mL):22 FUNCTIONAL FINDINGS: Segmental wall motion analysis revealing no gross wall motion abnormalities IMPRESSIONS 1. Myocardial perfusion imaging revealing fairly uniform myocardial tracer uptake with no significant Perfusion abnormalities. 2. Normal LV ejection fraction of 71%. 3. LV wall motion analysis revealing no gross wall motion abnormalities. 4. Normal LV volume Low probability for coronary ischemia, based on the above findings Dr Madalyn Downey MD FACC (Electronically Signed) Final Date: 21 September 2024 12:43 S
[2024-09-21] MEDS: regadenoson 0.4 Mg/5 ml Syringe IVP (10:55)
[2024-09-21 11:12] VITALS: BP 142/88; PULSE 77
== END 2024-09-21 09:17 | disposition home or self-care (01) ==
PROVIDERS: PCP Family Medicine; Visit Provider Family Medicine
DX: R07.9 Chest pain, unspecified (principal); R06.02 Shortness of breath
CPT/HCPCS: 36415; 78452; 93017; 96374; A9500; J2785

== ENCOUNTER → 2024-10-24 08:37 | Outpatient (BNVA) | payer MEDICARE, OTHER, SELFPAY | PROVIDERS: PCP Family Medicine; Visit Provider Internal Medicine Rheumatology | DX: M06.041 Rheumatoid arthritis without rheumatoid factor, right hand (principal); M06.042 Rheumatoid arthritis without rheumatoid factor, left hand; Z79.899 Other long term (current) drug therapy; Z71.85 Encounter for immunization safety counseling; E11.9 Type 2 diabetes mellitus without complications | CPT/HCPCS: 99204 ==

== ENCOUNTER → 2024-11-26 09:25 | Outpatient (BNVA) | payer MEDICARE, OTHER, SELFPAY | PROVIDERS: PCP Family Medicine; Visit Provider Family Medicine | DX: E11.9 Type 2 diabetes mellitus without complications (principal) | CPT/HCPCS: 83036 ==

== ENCOUNTER → 2024-12-04 14:12 | Outpatient (BNVA) | payer MEDICARE, OTHER, SELFPAY | PROVIDERS: PCP Family Medicine; Visit Provider Internal Medicine Cardiovascular Disease | DX: R07.9 Chest pain, unspecified (principal); E78.5 Hyperlipidemia, unspecified; I65.29 Occlusion and stenosis of unspecified carotid artery; I45.19 Other right bundle-branch block; R94.31 Abnormal electrocardiogram [ECG] [EKG] | CPT/HCPCS: 93005; 99214 ==

== ENCOUNTER 2025-02-14 00:33 | Emergency (ER) | payer MEDICARE, OTHER, SELFPAY ==
[2025-02-14 00:39] VITALS: BP 152/80; PULSE 65; RESP 20; TEMP 36.6; O2SAT 92; BMI 43.8
[2025-02-14 01:12] VITALS: BP 111/94; PULSE 62; RESP 18; O2SAT 95
[2025-02-14] MEDS: sodium chloride 0.9% 1,000 ML 999 ML IV (01:12)
[2025-02-14 01:13] LABS: Basophils # 0.1 10^3/uL (0.0-0.1); Basophils % 0.8 %; Eosinophils # 0.2 10^3/uL (0.0-0.8); Eosinophils % 2.1 %; Hematocrit 38.7 % (37-53); Lymphocytes # 2.8 10^3/uL (0.8-4.8); Lymphocytes % 30.8 %; Mean Corpuscular HGB Conc 34.1 g/dL (30-55); Mean Corpuscular Hemoglobin 29.8 pg (27-33); Mean Corpuscular Volume 87.4 fl (82-101); Mean Platelet Volume 9.1 fL (7.4-10.4); Monocytes # 0.7 10^3/uL (0.2-0.9); Neutrophils # 5.24 10^3/uL (1.8-7.7); Neutrophils % 57.7 %; Nucleated Red Blood Cells % 0 %; Platelet Count 222 10^3/cmm (157-399); Red Blood Count 4.43 10^6/uL (3.85-5.65); Red Cell Distribution Width 12.3 % (12.1-15.1); White Blood Count 9.08 10^3/uL (3.29-11.43)
[2025-02-14 01:36] LABS: Alanine Aminotransferase 22 U/L (0-41); Albumin Level 4.2 g/dL (3.5-5.2); Alkaline Phosphatase 95 U/L (40-130); Anion Gap 13.8 (5-19); Aspartate Amino Transferase 23 U/L (0-40); Blood Urea Nitrogen 20 mg/dL (8-23); Carbon Dioxide 26 mmol/L (22-29); Chloride 100 mmol/L (98-107); Creatinine Clr Calc Pharmacy 81.0963; Globulin 2.8 g/dL (1.3-4.6); Glomerular Filtration Rate 66.4 mL/min (90-130); Glucose 172 mg/dL (65-115); Lipase 37 U/L (13-60); Osmolality Calculated 289 mOsm/kg (285-295); Potassium 3.8 mmol/L (3.5-5.1); Sodium 136 mmol/L (136-145); Total Bilirubin 0.2 mg/dL (0.15-1.2)
[2025-02-14 02:09] VITALS: BP 155/101; PULSE 70; O2SAT 97
--- NOTE | 2025-02-14 02:10 | ECG_ITS ---
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 Measurements Intervals [place] Rate: 65 P: 30 NE: 186 QRS: 58 QRSD: 157 T: 32 QT: 466 QTc: 488 Interpretive Statements SINUS RHYTHM RIGHT BUNDLE BRANCH BLOCK [120+ ms QRS DURATION, UPRIGHT V1, 40+ ms S IN I/aVL/V4/V5/V6] Compared to ECG 12/04/2024 14:24:44 Right bundle-branch block now present Incomplete right bundle-branch block no longer present T-wave abnormality no longer present Electronically Signed On 02-16-2025 07:44:24 CDT by Devin Martínez M.D. [id number]
[2025-02-14] MEDS: LORazepam 2 mg/mL INJ 1 mL 1 MG IVP (02:17)
--- NOTE | 2025-02-14 02:30 | ED_ITS ---
HPI - Dizziness 2 General: Chief Complaint: Dizziness Stated Complaint: dizziness Time Seen by Provider: 02/14/25 00:48 History of Present Illness: HPI Narrative: This patient is a 69-year-old white male who was brought in by EMS for dizziness. Patient states that symptoms came on after taking hydrocodone. States he feels like his mouth is dry. Patient has difficult time telling me his symptoms. Denies chest pain. Denies shortness of breath. Related Data Previous Rx's ?Medication ?Instructions ?Recorded blood sugar diagnostic (Premier #300 ea 05/30/23 Test Strip) blood-glucose meter (Premier #1 ea 05/30/23 Classic Glucose Meter) lancets 30 gauge (Ultra Thin #300 ea 05/30/23 Lancets) blood-glucose meter (OneTouch #1 ea 06/01/23 Ultra2 Meter) blood sugar diagnostic (OneTouch #100 ea 07/31/24 Ultra Test strips) lancets 33 gauge (OneTouch Delica #100 ea 07/31/24 Plus Lancet) pen needle, diabetic 32 gauge x #100 ea 07/31/24/ (BD Nasreen 2nd Gen Pen Needle) clopidogrel 75 mg tablet See Rx Instructions .Route 0 08/06/24 .COMPLEX #90 tabs ezetimibe 10 mg tablet See Rx Instructions .Route 1 12/16/23 .COMPLEX #30 tabs hydroxychloroquine 200 mg tablet 200 mg PO BID #60 tab s 10/24/24 prednisone 10 mg tablet See Rx Instructions PO .COMP OLE 10/24/24 PRN joint pain #30 tabs losartan 50 mg tablet See Rx Instructions .Route 1 .COMPLEX #90 tabs potassium chloride 10 mEq 10 meq PO DAILY #30 tabs tablet,extended release (Klor-Con) CPAP mask and supplies #1 ea 01/10/25 furosemide 20 mg tablet 20 mg PO DAILY #30 tabs 12/30 0 Nasal CPAP mask with head gear #1 ea 01/24/25 insulin glargine 100 unit/mL (3 50 unit (0.5 mL) SUBCU T QAM #45 mL 01/31/25 mL) subcutaneous pen (Lantus Solostar U-100 Insulin) Allergies Allergy/AdvReac Type Severity Reaction Status Date / Time acetaminophen (From Percocet) Allergy ADR-Confusi Verified 12/04/24 14:23 on oxycodone (From Percocet) Allergy ADR-Confusi Verified 12/04/24 14:23 on Review of Systems 2 General: Reports: 10 or more systems reviewed and unremarkable except in HPI and below Neuro: Reports: dizziness PFSH ED 2 PFSH: Medical History Immunization counseling High risk medication use Seronegative rheumatoid arthritis of both hands Serrated polyp of colon CAD (coronary artery disease) Diabetes mellitus type 2, controlled Right rotator cuff tendonitis Hearing loss Chronic secretory otitis media Surgical History History of neck surgery History of temporal artery biopsy 01/17/24 Dr. Fiore History of rotator cuff surgery History of cholecystectomy History of ear surgery (~11/2019) H/O carotid endarterectomy History of appendectomy Family History Father Diabetes Cancer Mother Cancer at age 81 - Breast cancer Social History Smoking and tobacco/nicotine status: never used tobacco/nicotine Quit status (tobacco/nicotine): has quit using Alcohol intake: never Substance/Drug Use: never Physical Exam 2 Const: COMMON NORMALS: patient oriented x3 HENMT: COMMON NORMALS: normocephalic, atraumatic, Normal nasal mucous membranes and turbinates present, moist oral mucous membranes and oropharynx normal HEAD & SCALP: normal to inspection, normocephalic and atraumatic F TROY & SINUS: normal facial exam NOSE: Normal nasal mucous membranes and turbinates present Eye: COMMON NORMALS: Equal, round and reactive pupils present, EOMs intact bilaterally and conjunctivae normal GENERAL EYE: appearance normal, both eyes and all related structures CONJUNCTIVA: Yes conjunctivae normal PUPIL: Yes Equal, round and reactive pupils present Neck/C-Spine: COMMON NORMALS: supple and no JVD Chest: COMMONS NORMALS: normal inspection of the chest Resp: COMMON NORMALS: normal respiratory effort and clear to auscultation bilaterally AUSCULTATION: clear to auscultation bilaterally Cardio: COMMON NORMALS: no JVD, regular rate, regular rhythm, No gallops present (Cardio), No murmurs present (Cardio) and No rub (Cardio) RATE: r egular rate RHYTHM: regular rhythm GI: COMMON NORMALS: Normal to inspection, nondistended, normoactive bowel sounds present, Soft to palpation and non-tender AUSCULTATION: Yes normoactive bowel sounds PALPATION: Yes Soft to palpation : COMMON NORMALS: Yes no CVA tenderness BLADDER/KIDNEY EXAM: Yes no CVA tenderness Back/Pelvis: COMMON NORMALS: no CVA tenderness and thoracic and lumbar spine normal to inspection Extremity: COMMON NORMALS: normal to inspection Neuro: COMMON NORMALS: patient oriented x3 and CN's II-XII intact bilaterally Psych: COMMON NORMALS: mental status grossly normal and Normal thought process present THOUGHT PROCESS: Normal thought process present OTHER: Anxious Skin: COMMON NORMALS: no rashes or lesions noted, turgor normal and no jaundice GENERAL SKIN EXAM: no rashes or lesions noted and turgor normal Course 2 Vital Signs: Vital signs: Vital Signs Temperature 97.8 F 02/14/25 00:39 Pulse Rate 70 02/14/25 02:09 Respiratory Rate 18 02/14/25 01:12 Blood Pressure 155/101 02/14/25 02:09 Pulse Oximetry 97 02/14/25 02:09 Oxygen Delivery Me thod Room Air 02/14/25 01:12 [facility] - Dizziness Medical Decision Making Patient was given 1 L bolus of normal saline. CBC was normal. CMP normal except for elevated blood sugar of 172. Lipase was normal at 37. EKG revealed a right bundle branch block. No acute ST segment abnormalities. Patient was then given 1 mg of Ativan IV. He was discharged in stable condition instructed to discontinue hydrocodone use and follow-up with his primary care physician tomorrow if symptoms have not resolved. Lab Data 02/14/25 01:07 02/14/25 01:07 Laboratory Results WBC 9.08 10^3/uL (3.29-11.43) 02/14/25 01:07 RBC 4.43 10^6/uL (3.85-5.65) 02/14/25 01:07 Hgb 13.20 g/dL (11.27-16.99) 02/14/25 01:07 Hct 38.7 % (37-53) 02/14/25 01:07 MCV 87.4 fl (82-101) 02/14/25 01:07 MCH 29.8 pg (27-33) 02/14/25 01:07 MCHC 34.1 g/dL (30-55) 02/14/25 01:07 RDW 12.3 % (12.1-15.1) 02/14/25 01:07 Plt Count 222 10^3/cmm (157-399) 02/14/25 01:07 MPV 9.1 fL (7.4-10.4) 02/14/25 01:07 Neut % (Auto) 57.7 % 02/14/25 01:07 Lymph % (Auto) 30.8 % 02/14/25 01:07 [place] % (Auto) 8.0 % 02/14/25 01:07 Eos % (Auto) 2.1 % 02/14/25 01:07 Baso % (Auto) 0.8 % 02/14/25 01:07 Neut # (Auto) 5.24 10^3/uL (1.8-7.7) 02/14/25 01:07 Lymph # (Auto) 2.8 10^3/uL (0.8-4.8) 02/14/25 01:07 [place] # (Auto) 0.7 10^3/uL (0.2-0.9) 02/14/25 01:07 Eos # (Auto) 0.2 10^3/uL (0.0-0.8) 02/14/25 01:07 Baso # (Auto) 0.1 10^3/uL (0.0-0.1) 02/14/25 01:07 Nucleated RBC % (auto) 0 % 02/14/25 01:07 Nucleated RBCs # 0.0 /100WBC 02/14/25 01:07 Sodium 136 mmol/L (136-145) 02/14/25 01:07 Potassium 3.8 mmol/L (3.5-5.1) 02/14/25 01:07 Chloride 100 mmol/L (98-107) 02/14/25 01:07 Carbon Dioxide 26 mmol/L (22-29) 02/14/25 01:07 Anion Gap 13.8 (5-19) 02/14/25 01:07 BUN 20 mg/dL (8-23) 02/14/25 01:07 Creatinine 1.1 mg/dL (0.7-1.2) 02/14/25 01:07 GFR Calculation 66.4 mL/min (90-130) L 02/14/25 01:07 Glucose 172 mg/dL (65-115) H 02/14/25 01:07 Calculated Osmolality 289 mOsm/kg (285-295) 02/14/25 01:07 Calcium 9.0 mg/dL (8.5-10.5) 02/14/25 01:07 Total Bilirubin 0.2 mg/dL (0.15-1.2) 02/14/25 01:07 AST 23 U/L (0-40) 02/14/25 01:07 ALT 22 U/L (0-41) 02/14/25 01:07 Alkaline Phosphatase 95 U/L (40-130) 02/14/25 01:07 Total Protein 7.0 g/dL (6.6-8.7) 02/14/25 01:07 Albumin 4.2 g/dL (3.5-5.2) 02/14/25 01:07 Globulin 2.8 g/dL (1.3-4.6) 02/14/25 01:07 Lipase 37 U/L (13-60) 02/14/25 01:07 No radiology studies performed this visit Discharge Plan Discharge Patient Disposition: Home Clinical Impression: Anxiety Adverse drug effect Qualifiers: Encounter type: initial encounter Qualified Code(s): T50.905A - Adverse effect of unspecified drugs, medicaments and biological substances, initial encounter Condition: Stable Prescriptions: No Action hydroxychloroquine 200 mg tablet 200 mg PO BID Qty: 60 5RF prednisone 10 mg tablet See Rx Instructions PO .COMPLEX PRN (Reason: joint pain) Qty: 30 1RF Rx Instructions: take 1 tab daily up to 7 days prn joint pain flare PO PRN; (DME) Nasal CPAP mask with head gear See Rx Instructions .Route .MEDSUPPLY Qty: 1 0RF Rx Instructions: Use each night with CPAP (DME) Premier Test Strip Strip See Rx Instructions .ROUTE .COMPLEX Qty: 300 3RF Dose Instruction: USE DIRECTED TO MONITOR BLOOD SUGAR THREE TIMES DAILY Rx Instructions: to use TID with primier meter 90 supply (DME) lancets [Ultra Thin Lancets] 30 gauge misc See Rx Instructions .ROUTE .COMPLEX Qty: 300 3RF Dose Instruction: USE DIRECTED TO MONITOR BLOOD SUGAR THREE TIME DAILY Rx Instructions: to use TID to check blood sugar 90 supply (DME) blood-glucose meter [Premier Classic Glucose Meter] [facility] See Rx Instructions .Route Qty: 1 0RF Rx Instructions: to use TID to check blood sugar (DME) blood-glucose meter [OneTouch Ultra2 Meter] [facility] See Rx Instructions .Route Qty: 1 0RF Rx Instructions: Use to test blood gluose three times a day (DME) OneTouch Ultra Test Strip See Rx Instructions .Route Qty: 100 12RF Rx Instructions: Use one strip to test blood glucose three times a day (DME) lancets [OneTouch Delica Plus Lancet] 33 gauge [facility] See Rx Instructions .ROUTE .MEDSUPPLY Qty: 100 12RF Rx Instructions: use to test blood glucose three times a day (DME) pen needle, diabetic [BD Nasreen 2nd Gen Pen Needle] 32 gauge x 5/32 needle See Rx Instructions .ROUTE .COMPLEX Qty: 100 12RF Dose Instruction: USE DIRECTED Rx Instructions: USE DIRECTED clopidogrel 75 mg tablet See Rx Instructions .ROUTE .COMPLEX Qty: 90 3RF Dose Instruction: TAKE 1 TABLET BY MOUTH EVERY DAY Rx Instructions: TAKE 1 TABLET BY MOUTH EVERY DAY ezetimibe 10 mg tablet See Rx Instructions .ROUTE .COMPLEX Qty: 30 6RF Dose Instruction: TAKE 1 TABLET BY MOUTH EVERY DAY Rx Instructions: TAKE 1 TABLET BY MOUTH EVERY DAY losartan 50 mg tablet See Rx Instructions .ROUTE .COMPLEX Qty: 90 3RF Dose Instruction: TAKE 1 TABLET BY MOUTH EVERY DAY Rx Instructions: TAKE 1 TABLET BY MOUTH EVERY DAY potassium chloride [Klor-Con 10] 10 mEq tablet extended release 10 meq PO DAILY Qty: 30 6RF (DME) CPAP mask and supplies See Rx Instructions .ROUTE .MEDSUPPLY Qty: 1 2RF Rx Instructions: Use while sleeping at least 4 hours per day. furosemide 20 mg tablet 20 mg PO DAILY Qty: 30 6RF insulin glargine [Lantus Solostar U-100 Insulin] 100 unit/mL (3 mL) insulin pen 50 unit SUBCUT QAM Qty: 45 6RF Discharge Orders: Discharge ED (Routine); Ordered 02/14/25 Ordered By: Mars Holly Referrals: Shakeel Fulton MD [Primary Care Provider] - Activity Restrictions/Additional Instructions: Follow-up with your primary care provider tomorrow if no improvement. Discontinue the use of hydrocodone. Print Language: Setswana Coding Level of Care Code ED Security System Engineer for Alyssa Miller
[2025-02-14 02:56] VITALS: BP 138/95; PULSE 68; O2SAT 95
== END 2025-02-14 02:49 | disposition home or self-care (01) ==
PROVIDERS: Emergency Provider Emergency Medicine; PCP Family Medicine
DX: F41.9 Anxiety disorder, unspecified (principal); T40.2X5A Adverse effect of other opioids, initial encounter; Z79.02 Long term (current) use of antithrombotics/antiplatelets; Z79.4 Long term (current) use of insulin; I25.10 Atherosclerotic heart disease of native coronary artery without angina pectoris; E11.9 Type 2 diabetes mellitus without complications; X58.XXXA Exposure to other specified factors, initial encounter; I45.10 Unspecified right bundle-branch block
CPT/HCPCS: 36415; 80053; 83690; 85025; 93005; 96361; 96374; 99284; J2060; J7030

== ENCOUNTER → 2025-02-21 10:06 | Outpatient (BNVA) | payer MEDICARE, OTHER, SELFPAY | PROVIDERS: PCP Family Medicine; Visit Provider Internal Medicine Rheumatology | DX: M06.041 Rheumatoid arthritis without rheumatoid factor, right hand (principal); M06.042 Rheumatoid arthritis without rheumatoid factor, left hand; Z79.899 Other long term (current) drug therapy; Z71.85 Encounter for immunization safety counseling | CPT/HCPCS: 99214 ==

== ENCOUNTER 2025-03-22 10:56 | Outpatient (CLI) | payer MEDICARE, OTHER, SELFPAY ==
[2025-03-22 12:46] LABS: Basophils # 0.1 10^3/uL (0.0-0.1); Basophils % 0.7 %; Eosinophils # 0.2 10^3/uL (0.0-0.8); Eosinophils % 3.1 %; Lymphocytes # 2.4 10^3/uL (0.8-4.8); Lymphocytes % 32.4 %; Mean Corpuscular HGB Conc 33.2 g/dL (30-55); Mean Corpuscular Hemoglobin 29.3 pg (27-33); Mean Corpuscular Volume 88.4 fl (82-101); Mean Platelet Volume 9.5 fL (7.4-10.4); Monocytes # 0.7 10^3/uL (0.2-0.9); Monocytes % 9.5 %; Neutrophils # 4.05 10^3/uL (1.8-7.7); Neutrophils % 53.9 %; Nucleated Red Blood Cells % 0 %; Platelet Count 217 10^3/cmm (157-399); Red Blood Count 4.64 10^6/uL (3.85-5.65); Red Cell Distribution Width 12.4 % (12.1-15.1)
[2025-03-22 12:49] LABS: Erythrocyte Sedimentation Rate 35 mm/hr (0-10)
[2025-03-22 12:59] LABS: Estmated Average Glucose 134; Hemoglobin A1C 6.3 % (4.0-6.0)
[2025-03-22 13:06] LABS: Alanine Aminotransferase 33 U/L (0-41); Albumin Level 4.2 g/dL (3.5-5.2); Alkaline Phosphatase 97 U/L (40-130); Anion Gap 11.5 (5-19); Aspartate Amino Transferase 31 U/L (0-40); Blood Urea Nitrogen 16 mg/dL (8-23); C Reactive Protein 4.1 mg/L (0.0-4.9); Carbon Dioxide 30 mmol/L (22-29); Chloride 102 mmol/L (98-107); Globulin 2.8 g/dL (1.3-4.6); Glomerular Filtration Rate 95.8 mL/min (90-130); Glucose 100 mg/dL (65-115); Osmolality Calculated 289 mOsm/kg (285-295); Potassium 4.5 mmol/L (3.5-5.1); Sodium 139 mmol/L (136-145); Total Bilirubin 0.5 mg/dL (0.15-1.2)
== END 2025-03-22 10:57 | disposition home or self-care (01) ==
LOC: LAB 11:00
PROVIDERS: PCP Family Medicine; Visit Provider Internal Medicine Rheumatology
DX: M06.041 Rheumatoid arthritis without rheumatoid factor, right hand (principal); M06.042 Rheumatoid arthritis without rheumatoid factor, left hand; E11.9 Type 2 diabetes mellitus without complications
CPT/HCPCS: 36415; 80053; 80076; 82565; 83036; 85025; 85651; 86140

== ENCOUNTER → 2025-04-11 10:13 | Outpatient (BNVA) | payer MEDICARE, OTHER, SELFPAY | PROVIDERS: PCP Family Medicine; Visit Provider Family Medicine | DX: R19.7 Diarrhea, unspecified (principal) | CPT/HCPCS: 87045; 87177; 87209; 87427; 87449; 87493 ==

== ENCOUNTER 2025-04-17 15:04 | Emergency (ER) | payer MEDICARE, OTHER, SELFPAY ==
--- NOTE | 2025-04-17 15:16 | ECG_ITS ---
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 Measurements Intervals [place] Rate: 69 P: 61 [place]: 182 QRS: 71 QRSD: 142 T: 43 QT: 422 QTc: 454 Interpretive Statements SINUS RHYTHM RIGHT BUNDLE BRANCH BLOCK [120+ ms QRS DURATION, UPRIGHT V1, 40+ ms S IN I/aVL/V4/V5/V6] Compared to ECG 02/14/2025 02:10:36 No significant changes Electronically Signed On 04-18-2025 18:08:22 CDT by Madalyn Downey M.D. [email or web address]
[2025-04-17 15:17] VITALS: BP 124/75; PULSE 76; RESP 18; TEMP 36.5; O2SAT 95
--- NOTE | 2025-04-17 16:36 | XRR_ITS ---
PROCEDURE INFORMATION: Exam: XR Chest Exam date and time: 04/17/2025 4:39 PM Age: 70 years old Clinical indication: Pain; Angina pectoris; Additional info: Cp TECHNIQUE: Imaging protocol: Radiologic exam of the chest. Views: 1 view. COMPARISON: CR XR chest 2V* [id number] 04/02/2019 2:48 PM FINDINGS: Lungs: Unremarkable. No consolidation. Pleural spaces: Unremarkable. No pleural effusion. No pneumothorax. Heart/Mediastinum: Unremarkable. No cardiomegaly. Bones/joints: Unremarkable. XR/XR chest 1V portable [id number] IMPRESSION: No acute findings.
[2025-04-17 16:55] LABS: Basophils # 0.1 10^3/uL (0.0-0.1); Basophils % 0.8 %; Eosinophils # 0.3 10^3/uL (0.0-0.8); Hematocrit 42.6 % (37-53); Lymphocytes # 2.1 10^3/uL (0.8-4.8); Lymphocytes % 23.8 %; Mean Corpuscular HGB Conc 33.1 g/dL (30-55); Mean Corpuscular Hemoglobin 29.4 pg (27-33); Mean Corpuscular Volume 88.8 fl (82-101); Mean Platelet Volume 9.1 fL (7.4-10.4); Monocytes # 0.9 10^3/uL (0.2-0.9); Monocytes % 9.8 %; Neutrophils # 5.47 10^3/uL (1.8-7.7); Neutrophils % 62.3 %; Nucleated Red Blood Cells % 0 %; Platelet Count 216 10^3/cmm (157-399); Red Cell Distribution Width 12.2 % (12.1-15.1); White Blood Count 8.78 10^3/uL (3.29-11.43)
[2025-04-17 17:16] LABS: Troponin(5th) Baseline < 6 ng/L (0-15)
[2025-04-17 17:25] LABS: Alanine Aminotransferase 27 U/L (0-41); Albumin Level 4.2 g/dL (3.5-5.2); Alkaline Phosphatase 102 U/L (40-130); Anion Gap 16.3 (5-19); Aspartate Amino Transferase 27 U/L (0-40); Blood Urea Nitrogen 14 mg/dL (8-23); Carbon Dioxide 26 mmol/L (22-29); Chloride 104 mmol/L (98-107); Creatinine Clr Calc Pharmacy 110.3778; Globulin 2.5 g/dL (1.3-4.6); Glomerular Filtration Rate 95.6 mL/min (90-130); Glucose 73 mg/dL (65-115); NT Pro B Type Natriuretic Pept 56 pg/mL (0-125); Osmolality Calculated 293 mOsm/kg (285-295); Potassium 4.3 mmol/L (3.5-5.1); Sodium 142 mmol/L (136-145); Total Bilirubin 0.4 mg/dL (0.15-1.2); Total Protein 6.7 g/dL (6.6-8.7)
--- NOTE | 2025-04-17 17:41 | W.ED.CHESTPA ---
HPI - Chest Pain General: Chief Complaint: Chest Pain Stated Complaint: CP SOB Time Seen by Provider: 04/17/25 16:36 History of Present Illness: Christopher Ramirez, a patient with a history of hypertension, presents with episodes of chest pain. The patient reports experiencing a sharp pain on the right side on Tuesday, which prompted an ambulance visit. Today, he experienced a different kind of pain, more centrally located in his chest, lasting about 15 minutes. This pain also occurred yesterday for about 5 minutes while watching his son's golf tournament. The patient describes the current pain as intermittent, with occasional mild discomfort rated as 1-2 out of 10. He notes having a couple of similar episodes while in [place]. The pain today lasted longer than previous occurrences, prompting his to bring him for evaluation instead of taking an ambulance as suggested. The patient mentions that the pain has subsided, but he still experiences occasional mild twinges. In addition to the chest pain, the patient reports a skin condition, possibly related to poison garrett or poison oak. He is currently using a topical ointment prescribed by Dr. Fulton for itchy lesions on his ears and the back of his neck. The patient notes that sun exposure seems to exacerbate the condition, which has spread to his knees. He is also taking an oral antibiotic for this issue. The patient's medical history is significant for hypertension, for which he has medication. He mentions having a blood pressure machine at home but hasn't used it recently. The patient also discloses that he has diabetes. Related Data Previous Rx's ?Medication ?Instructions ?Recorded blood sugar diagnostic (Premier #300 ea 05/30/23 Test Strip) blood-glucose meter (Premier #1 ea 05/30/23 Classic Glucose Meter) lancets 30 gauge (Ultra Thin #300 ea 05/30/23 Lancets) blood-glucose meter (OneTouch #1 ea 06/01/23 Ultra2 Meter) blood sugar diagnostic (OneTouch #100 ea 07/31/24 Ultra Test strips) lancets 33 gauge (OneTouch Delica #100 ea 07/31/24 Plus Lancet) pen needle, diabetic 32 gauge x #100 ea 07/31/24 5/32 (BD Nasreen 2nd Gen Pen Needle) clopidogrel 75 mg tablet See Rx Instructions .Route 08/06/24 .COMPLEX #90 tabs ezetimibe 10 mg tablet See Rx Instructions .Route 10/16/24 .COMPLEX #30 tabs losartan 50 mg tablet See Rx Instructions .Route 11/26/24 .COMPLEX #90 tabs potassium chloride 10 mEq 10 meq PO DAILY #30 tabs 12/18/24 tablet,extended release (Klor-Con) CPAP mask and supplies #1 ea 01/10/25 furosemide 20 mg tablet 20 mg PO DAILY #30 tabs 01/17/25 Nasal CPAP mask with head gear #1 ea 01/24/25 hydroxychloroquine 200 mg tablet 200 mg PO BID #180 tabs 02/21/25 leflunomide 20 mg tablet 20 mg PO DAILY #30 tabs 02/21/25 prednisone 10 mg tablet See Rx Instructions PO .COMPLEX 02/21/25 PRN joint pain #30 tabs insulin glargine 100 unit/mL (3 45 unit (0.45 mL) SUBCUT QAM #45 mL 03/22/25 mL) subcutaneous pen (Lantus Solostar U-100 Insulin) triamcinolone acetonide 0.1 % 1 applic topical DAILY #30 grams 04/09/25 topical cream clindamycin HCl 300 mg capsule 300 mg PO TID #21 caps 04/15/25 (Cleocin HCl) Allergies Allergy/AdvReac Type Severity Reaction Status Date / Time acetaminophen (From Percocet) Allergy ADR-Confusi Verified 12/04/24 14:23 on oxycodone (From Percocet) Allergy ADR-Confusi Verified 12/04/24 14:23 on Review of Systems General: Reports: 10 or more systems reviewed and unremarkable except in HPI and below PFSH ED PFSH: Medical History Immunization counseling High risk medication use Seronegative rheumatoid arthritis of both hands Serrated polyp of colon CAD (coronary artery disease) Diabetes mellitus type 2, controlled Right rotator cuff tendonitis Hearing loss Chronic secretory otitis media Surgical History History of neck surgery History of temporal artery biopsy 01/17/24 Dr. Fiore History of rotator cuff surgery History of cholecystectomy History of ear surgery (~11/2019) H/O carotid endarterectomy History of appendectomy Family History Father Diabetes Cancer Mother Cancer at age 81 - Breast cancer Social History Smoking and tobacco/nicotine status: never used tobacco/nicotine Quit status (tobacco/nicotine): has quit using Alcohol intake: never Substance/Drug Use: never Physical Exam Const: COMMON NORMALS: no acute distress, patient oriented x3, healthy appearing, alert and well nourished HENMT: COMMON NORMALS: normocephalic HEAD & SCALP: normocephalic Eye: COMMON NORMALS: EOMs intact bilaterally Neck/C-Spine: COMMON NORMALS: full ROM and supple Resp: COMMON NORMALS: normal respiratory effort, No retractions and clear to auscultation bilaterally AUSCULTATION: clear to auscultation bilaterally Cardio: COMMON NORMALS: regular rate, regular rhythm, No gallops present (Cardio) and No murmurs present (Cardio) RATE: regular rate RHYTHM: regular rhythm GI: COMMON NORMALS: Soft to palpation and non-tender PALPATION: Yes Soft to palpation Extremity: GENERAL: Yes normal exam except as noted Neuro: COMMON NORMALS: patient oriented x3 SENSORIUM/ORIENTATION: Yes alert Skin: COMMON NORMALS: no rashes or lesions noted GENERAL SKIN EXAM: no rashes or lesions noted Course Vital Signs: Vital signs: Vital Signs Temperature 97.7 F 04/17/25 15:17 Pulse Rate 76 04/17/25 15:17 Respiratory Rate 18 04/17/25 15:17 Blood Pressure 124/75 04/17/25 15:17 Pulse Oximetry 95 04/17/25 15:17 Oxygen Delivery Me thod Room Air 04/17/25 15:17 MDM - Chest Pain Medical Decision Making 70-year-old male presented to the emergency department for evaluation of intermittent chest pain for the last 3 days. His history is not classic for anginal pain. However, counseled the patient that he needs to follow-up with cardiology for a stress test. Labs (including troponin) and imaging in the emergency department today was unremarkable. EKG demonstrated new right bundle branch block. Return precautions were discussed and the patient was discharged home in good condition peer Lab Data 04/17/25 16:47 04/17/25 16:47 Radiology Impressions Chest X-Ray 04/17/25 16:36 IMPRESSION: No acute findings. Laboratory Results WBC 8.78 10^3/uL (3.29-11.43) 04/17/25 16:47 RBC 4.80 10^6/uL (3.85-5.65) 04/17/25 16:47 Hgb 14.10 g/dL (11.27-16.99) 04/17/25 16:47 Hct 42.6 % (37-53) 04/17/25 16:47 MCV 88.8 fl (82-101) 04/17/25 16:47 MCH 29.4 pg (27-33) 04/17/25 16:47 MCHC 33.1 g/dL (30-55) 04/17/25 16:47 RDW 12.2 % (12.1-15.1) 04/17/25 16:47 Plt Count 216 10^3/cmm (157-399) 04/17/25 16:47 MPV 9.1 fL (7.4-10.4) 04/17/25 16:47 Neut % (Auto) 62.3 % 04/17/25 16:47 Lymph % (Auto) 23.8 % 04/17/25 16:47 [place] % (Auto) 9.8 % 04/17/25 16:47 Eos % (Auto) 3.0 % 04/17/25 16:47 Baso % (Auto) 0.8 % 04/17/25 16:47 Neut # (Auto) 5.47 10^3/uL (1.8-7.7) 04/17/25 16:47 Lymph # (Auto) 2.1 10^3/uL (0.8-4.8) 04/17/25 16:47 [place] # (Auto) 0.9 10^3/uL (0.2-0.9) 04/17/25 16:47 Eos # (Auto) 0.3 10^3/uL (0.0-0.8) 04/17/25 16:47 Baso # (Auto) 0.1 10^3/uL (0.0-0.1) 04/17/25 16:47 Nucleated RBC % (auto) 0 % 04/17/25 16:47 Nucleated RBCs # 0.0 /100WBC 04/17/25 16:47 Sodium 142 mmol/L (136-145) 04/17/25 16:47 Potassium 4.3 mmol/L (3.5-5.1) 04/17/25 16:47 Chloride 104 mmol/L (98-107) 04/17/25 16:47 Carbon Dioxide 26 mmol/L (22-29) 04/17/25 16:47 Anion Gap 16.3 (5-19) 04/17/25 16:47 BUN 14 mg/dL (8-23) 04/17/25 16:47 Creatinine 0.8 mg/dL (0.7-1.2) 04/17/25 16:47 GFR Calculation 95.6 mL/min (90-130) 04/17/25 16:47 Glucose 73 mg/dL (65-115) 04/17/25 16:47 Calculated Osmolality 293 mOsm/kg (285-295) 04/17/25 16:47 Calcium 9.0 mg/dL (8.5-10.5) 04/17/25 16:47 Total Bilirubin 0.4 mg/dL (0.15-1.2) 04/17/25 16:47 AST 27 U/L (0-40) 04/17/25 16:47 ALT 27 U/L (0-41) 04/17/25 16:47 Alkaline Phosphatase 102 U/L (40-130) 04/17/25 16:47 Troponin T Baseline < 6 ng/L (0-15) 04/17/25 16:47 NT-Pro-B Natriuret Pep 56 pg/mL (0-125) 04/17/25 16:47 Total Protein 6.7 g/dL (6.6-8.7) 04/17/25 16:47 Albumin 4.2 g/dL (3.5-5.2) 04/17/25 16:47 Globulin 2.5 g/dL (1.3-4.6) 04/17/25 16:47 All radiology interpretation(s) finalized by discharge EKG Data EKG 1: Computer generated interpretation: Sinus rhythm rate 69, LA 182, QRS 142, QTc of 441, no ST segment elevation or depression, right bundle branch block Discharge Plan Discharge Patient Disposition: Home Clinical Impression: Chest pain Qualifiers: Chest pain type: other chest pain Qualified Code(s): R07.89 - Other chest pain Condition: Stable Prescriptions: No Action hydroxychloroquine 200 mg tablet 200 mg PO BID Qty: 180 1RF prednisone 10 mg tablet See Rx Instructions PO .COMPLEX PRN (Reason: joint pain) Qty: 30 1RF Rx Instructions: take 1 tab daily up to 7 days prn joint pain flare PO PRN; leflunomide 20 mg tablet 20 mg PO DAILY Qty: 30 3RF insulin glargine [Lantus Solostar U-100 Insulin] 100 unit/mL (3 mL) insulin pen 45 unit SUBCUT QAM Qty: 45 6RF (DME) Nasal CPAP mask with head gear See Rx Instructions .Route .MEDSUPPLY Qty: 1 0RF Rx Instructions: Use each night with CPAP triamcinolone acetonide 0.1 % cream 1 applic topical DAILY Qty: 30 6RF clindamycin HCl [Cleocin HCl] 300 mg capsule 300 mg PO TID Qty: 21 0RF (DME) Premier Test Strip Strip See Rx Instructions .ROUTE .COMPLEX Qty: 300 3RF Dose Instruction: USE DIRECTED TO MONITOR BLOOD SUGAR THREE TIMES DAILY Rx Instructions: to use TID with primier meter 90 supply (DME) lancets [Ultra Thin Lancets] 30 gauge misc See Rx Instructions .ROUTE .COMPLEX Qty: 300 3RF Dose Instruction: USE DIRECTED TO MONITOR BLOOD SUGAR THREE TIME DAILY Rx Instructions: to use TID to check blood sugar 90 supply (DME) blood-glucose meter [Premier Classic Glucose Meter] Misc See Rx Instructions .Route Qty: 1 0RF Rx Instructions: to use TID to check blood sugar (DME) blood-glucose meter [OneTouch Ultra2 Meter] Misc See Rx Instructions .Route Qty: 1 0RF Rx Instructions: Use to test blood gluose three times a day (DME) OneTouch Ultra Test Strip See Rx Instructions .Route Qty: 100 12RF Rx Instructions: Use one strip to test blood glucose three times a day (DME) lancets [OneTouch Delica Plus Lancet] 33 gauge misc See Rx Instructions .ROUTE .MEDSUPPLY Qty: 100 12RF Rx Instructions: use to test blood glucose three times a day (DME) pen needle, diabetic [BD Nasreen 2nd Gen Pen Needle] 32 gauge x 5/32 needle See Rx Instructions .ROUTE .COMPLEX Qty: 100 12RF Dose Instruction: USE DIRECTED Rx Instructions: USE DIRECTED clopidogrel 75 mg tablet See Rx Instructions .ROUTE .COMPLEX Qty: 90 3RF Dose Instruction: TAKE 1 TABLET BY MOUTH EVERY DAY Rx Instructions: TAKE 1 TABLET BY MOUTH EVERY DAY ezetimibe 10 mg tablet See Rx Instructions .ROUTE .COMPLEX Qty: 30 6RF Dose Instruction: TAKE 1 TABLET BY MOUTH EVERY DAY Rx Instructions: TAKE 1 TABLET BY MOUTH EVERY DAY losartan 50 mg tablet See Rx Instructions .ROUTE .COMPLEX Qty: 90 3RF Dose Instruction: TAKE 1 TABLET BY MOUTH EVERY DAY Rx Instructions: TAKE 1 TABLET BY MOUTH EVERY DAY potassium chloride [Klor-Con 10] 10 mEq tablet extended release 10 meq PO DAILY Qty: 30 6RF (DME) CPAP mask and supplies See Rx Instructions .ROUTE .MEDSUPPLY Qty: 1 2RF Rx Instructions: Use while sleeping at least 4 hours per day. furosemide 20 mg tablet 20 mg PO DAILY Qty: 30 6RF Discharge Orders: Discharge ED (Routine); Ordered 04/17/25 Ordered By: Sean Sweet Referrals: Shakeel Fulton MD [Primary Care Provider, [facility]] Discharge Diet: Advance as tolerated Discharge Activity: Resume usual activity Patient Instructions: Opioid Safety, Pain Management Activity Restrictions/Additional Instructions: Please follow-up with cardiology for a stress test as we discussed. Return to the emergency department with any new or worsening symptoms. Print Language: Pashto Coding Level of Care Code ED Bender Machine Operator for Alyssa Miller
[2025-04-17 18:36] VITALS: BP 156/93; PULSE 72; O2SAT 95
--- NOTE | 2025-04-17 18:36 | ECG_ITS ---
[facility]: 2025-[facility]17 Pat Name: Christopher Ramirez Department: Room: Gender: Male Client Advisor: : 1955 Requested By: Sean Sweet Order Number: [id number] Polanco MD: Madalyn Downey M.D. Measurements Intervals [place] Rate: 64 P: 40 ID: 191 QRS: 68 QRSD: 142 T: 41 QT: 445 QTc: 459 Interpretive Statements SINUS RHYTHM RIGHT BUNDLE BRANCH BLOCK [120+ ms QRS DURATION, UPRIGHT V1, 40+ ms S IN I/aVL/V4/V5/V6] Compared to ECG 04/17/2025 15:16:13 No significant changes Electronically Signed On 04-18-2025 18:22:54 CDT by Madalyn Downey M.D. [id number] [id number]
[2025-04-17 18:38] VITALS: BP 156/93; PULSE 73; O2SAT 95
[2025-04-17 19:03] LABS: Troponin 5 2HR < 6.0 ng/L (0-15); Troponin 5 2HR Delta 0 ABS# (0-10)
== END 2025-04-17 18:43 | disposition home or self-care (01) ==
PROVIDERS: Emergency Provider General Practice; PCP Family Medicine
DX: R07.89 Other chest pain (principal); Z79.02 Long term (current) use of antithrombotics/antiplatelets; I25.10 Atherosclerotic heart disease of native coronary artery without angina pectoris; E11.9 Type 2 diabetes mellitus without complications
CPT/HCPCS: 36415; 71045; 80053; 83880; 84484; 85025; 93005; 99285

== ENCOUNTER → 2025-04-25 15:14 | Outpatient (BNVA) | payer MEDICARE, OTHER, SELFPAY | PROVIDERS: PCP Family Medicine; Visit Provider Nurse Practitioner Family | DX: Z09 Encounter for follow-up examination after completed treatment for conditions other than malignant neoplasm (principal); I10 Essential (primary) hypertension; Z79.02 Long term (current) use of antithrombotics/antiplatelets; Z87.891 Personal history of nicotine dependence | CPT/HCPCS: 99214 ==

== ENCOUNTER → 2025-06-21 08:43 | Outpatient (BNVA) | payer MEDICARE, OTHER, SELFPAY | PROVIDERS: PCP Family Medicine; Visit Provider Family Medicine | DX: E11.9 Type 2 diabetes mellitus without complications (principal); R35.0 Frequency of micturition; E55.9 Vitamin D deficiency, unspecified; E53.8 Deficiency of other specified B group vitamins | CPT/HCPCS: 80048; 82306; 82607; 83036; 84153 ==

== ENCOUNTER 2025-06-29 00:16 | Emergency (ER) | payer MEDICARE, OTHER, SELFPAY ==
[2025-06-29 00:17] VITALS: BP 122/78; PULSE 76; RESP 20; TEMP 36.6; O2SAT 96; BMI 43.8
--- OUTSIDE RECORDS SUMMARY | 2025-06-29 00:27 | XMS_ITS | Encounter Summary ---
Author Organization [facility] Address [address] [place] [address] Care Team Providers Care Activities Coordinator Name Role Phone Shakeel Fulton MD Primary Care Provider [phone] Encounter Details Date Type Department Care Team (Latest Contact Info) Description 05/15/2001 Outpatient Historical [facility] Hari Hartmann Jr., MD [address] [place] [address] Dermatitis due to plant (Primary Dx); Obesity, unspecified Social History Tobacco Use Types Packs/Day Years Used Date Smoking Tobacco: Never Assessed Sex and Gender Information Value Date Recorded Sex Assigned at Not on file 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
--- OUTSIDE RECORDS SUMMARY | 2025-06-29 00:27 | XMS_ITS | Encounter Summary ---
Author Organization [facility] Address [address] [place] [address] Care Team Providers Care Reproductive Endocrinologist Name Role Phone Shakeel Fulton MD Primary Care Provider [phone] Encounter Details Date Type Department Care Team (Latest Contact Info) Description 03/03/1999 Outpatient Historical [facility] Yoel Lau MD [address] [place] [address] Unspecified otitis media (Primary Dx); Dermatophytosis of foot Social History Tobacco Use Types Packs/Day Years Used Date Smoking Tobacco: Never Assessed Sex and Gender Information Value Date Recorded Sex Assigned at Not on file 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
--- OUTSIDE RECORDS SUMMARY | 2025-06-29 00:27 | XMS_ITS | Encounter Summary ---
Author Organization [facility] Address [address] [place] [address] Care Team Providers Care Sparmaker Name Role Phone Shakeel Fulton MD Primary Care Provider [phone] Encounter Details Date Type Department Care Team (Latest Contact Info) Description 12/02/1997 Outpatient Historical [facility] [address] [place] [address] [place] [id number] Shakeel Lopez MD NO ADDRESS ON FILE Unspecified sleep apnea (Primary Dx) Social History Tobacco Use Types Packs/Day Years Used Date Smoking Tobacco: Never Assessed Sex and Gender Information Value Date Recorded Sex Assigned at Not on file 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
--- OUTSIDE RECORDS SUMMARY | 2025-06-29 00:33 | XMS_ITS | Encounter Summary ---
Author Organization [facility] Address [address] [place] [address] Care Team Providers Care Liquid Sugar Melter Name Role Phone Shakeel Fulton MD Primary Care Provider [phone] Encounter Details Date Type Department Care Team (Latest Contact Info) Description 07/22/2004 [facility] [address] [place] [address] Maynor Hong MD [address] [place] [phone] PSYCHOSEXUAL DYSFUNC NEC (Primary Dx) Social History Tobacco Use Types Packs/Day Years Used Date Smoking Tobacco: Never Assessed Sex and Gender Information Value Date Recorded Sex Assigned at Not on file 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
--- NOTE | 2025-06-29 00:34 | ECG_ITS ---
[facility] [employer] Test Date: 2025-06-29 Pat Name: Christopher Ramirez Department: Room: Gender: Male Internal Recruiter: : 1955 Requested By: Denys Finney Order Number: [id number] Collin MD: TESSA REYES Measurements Intervals [place] Rate: 67 P: 32 DE: 169 QRS: 68 QRSD: 136 T: 45 QT: 433 QTc: 460 Interpretive Statements SINUS RHYTHM RIGHT BUNDLE BRANCH BLOCK [120+ ms QRS DURATION, UPRIGHT V1, 40+ ms S IN I/aVL/V4/V5/V6] Compared to ECG 04/17/2025 18:19:10 No significant changes Electronically Signed On 07-01-2025 13:58:27 CDT by TESSA REYES [email or web address] [id number]
--- NOTE | 2025-06-29 00:34 | XRR_ITS ---
PROCEDURE INFORMATION: Exam: XR Chest Exam date and time: 06/29/2025 12:35 AM Age: 70 years old Clinical indication: Chest pressure; Prior surgery; Surgery date: 6+ months; Surgery type: Cervical fusion. Rotator cuff; C/O chest pain TECHNIQUE: Imaging protocol: Radiologic exam of the chest. Views: 1 view. COMPARISON: CR XR chest 1V portable [id number] 04/17/2025 4:39 PM FINDINGS: Lungs: Streaky opacities in the bilateral lung bases. Pleural spaces: Unremarkable. No pleural effusion. No pneumothorax. Heart/Mediastinum: Unremarkable. No cardiomegaly. Bones/joints: Unremarkable. XR/XR chest 1V portable [id number] IMPRESSION: Streaky opacities in the bilateral lung bases, likely atelectasis. Superimposed infection can not be excluded.
[2025-06-29 01:05] LABS: Hematocrit 40.9 % (37-53); Hemoglobin 13.90 g/dL (11.27-16.99); Mean Corpuscular HGB Conc 34.0 g/dL (30-55); Mean Corpuscular Hemoglobin 30.0 pg (27-33); Mean Corpuscular Volume 88.1 fl (82-101); Nucleated Red Blood Cells % 0 %; Platelet Count 272 10^3/cmm (157-399); Red Blood Count 4.64 10^6/uL (3.85-5.65); White Blood Count 11.26 10^3/uL (3.29-11.43)
[2025-06-29 01:29] LABS: Troponin(5th) Baseline 7 ng/L (0-15)
[2025-06-29 01:33] VITALS: BP 125/78; PULSE 69; RESP 18; O2SAT 95
[2025-06-29 01:38] LABS: Alanine Aminotransferase 21 U/L (0-41); Albumin Level 4.3 g/dL (3.5-5.2); Alkaline Phosphatase 117 U/L (40-130); Anion Gap 16.0 (5-19); Aspartate Amino Transferase 22 U/L (0-40); Blood Urea Nitrogen 21 mg/dL (8-23); Calcium 9.5 mg/dL (8.5-10.5); Carbon Dioxide 28 mmol/L (22-29); Chloride 100 mmol/L (98-107); Creatinine Clr Calc Pharmacy 97.7217; Globulin 2.6 g/dL (1.3-4.6); Glucose 134 mg/dL (65-115); NT Pro B Type Natriuretic Pept < 36 pg/mL (0-125); Osmolality Calculated 295 mOsm/kg (285-295); Potassium 4.0 mmol/L (3.5-5.1); Sodium 140 mmol/L (136-145); Total Protein 6.9 g/dL (6.6-8.7)
--- NOTE | 2025-06-29 02:09 | CTR_ITS ---
PROCEDURE INFORMATION: Exam: CTA Chest With Contrast Exam date and time: 06/29/2025 2:25 AM Age: 70 years old Clinical indication: Chest pressure; C/O chest pain primarily substernal TECHNIQUE: Imaging protocol: Computed tomographic angiography of the chest with contrast. Exam focused on the arteries. 3D rendering (Not supervised by radiologist): MIP and/or 3D reconstructed images were created by the technologist. Radiation optimization: All CT scans at this facility use at least one of these dose optimization techniques: automated exposure control; mA and/or kV adjustment per patient size (includes targeted exams where dose is matched to clinical indication); or iterative reconstruction. Contrast material: OMNI 350; Contrast volume: 61 ml; Contrast route: INTRAVENOUS (IV); COMPARISON: CR (CHEST, ) 06/29/2025 12:35 AM RADIATION DOSE METRICS: Total DLP (mGy-cm): 527.55 FINDINGS: Pulmonary arteries: Normal. No pulmonary emboli. Aorta: Unremarkable. No aortic aneurysm. No aortic dissection. Lungs: Unremarkable. No consolidation. No masses. Pleural spaces: Unremarkable. No pneumothorax. No pleural effusion. Heart: Unremarkable. No cardiomegaly. No pericardial effusion. Lymph nodes: Unremarkable. No enlarged lymph nodes. Bones/joints: Unremarkable. No acute fracture. Soft tissues: Unremarkable. Other findings: Subsolid nodules on the left 5 mm 7 mm and [address] Chest at 3-6 months. Subsequent management based on the most suspicious nodule(s). (Reference: Deborah) CT/CT angio chest PE protcl [id number] IMPRESSION: Incidentally noted pulmonary nodules as above recommend follow-up in to 6 months. No acute finding. Hello REFERENCES: Deborah Simon et al. Guidelines for Management of Incidental Pulmonary Nodules Detected on CT Images: From the Fleischner Society 2017. Radiology. 2017;284(1):228-243.
[2025-06-29] MEDS: iohexol 350 mg/mL 500 mL Btl (per mL) IV (02:34)
--- NOTE | 2025-06-29 02:34 | ECG_ITS ---
[facility] Test Date: 2025-06-29 Pat Name: Christopher Ramirez Department: Room: Gender: Male Director Report: : 1955 Requested By: Denys Finney Order Number: [id number] Polanco MD: TESSA REYES Measurements Intervals [place] Rate: 65 P: 26 [place]: 185 QRS: 61 QRSD: 108 T: 52 QT: 428 QTc: 446 Interpretive Statements SINUS RHYTHM LOW QRS VOLTAGE IN PRECORDIAL LEADS [QRS DEFLECTION < 1.0 mV IN CHEST LEADS] NONSPECIFIC T-WAVE ABNORMALITY Compared to ECG 06/29/2025 00:18:57 Low QRS voltage now present T-wave abnormality now present Right bundle-branch block no longer present Electronically Signed On 07-01-2025 14:09:54 CDT by TESSA REYES [id number]
[2025-06-29 04:01] LABS: Troponin 5 2HR < 6.0 ng/L (0-15)
[2025-06-29 04:02] LABS: Troponin 5 2HR Delta -1.00001 ABS# (0-10)
--- NOTE | 2025-06-29 04:03 | W.ED.CHESTPA ---
HPI - Chest Pain General: Chief Complaint: Chest Pain Stated Complaint: Chest pain Time Seen by Provider: 06/29/25 00:21 History of Present Illness: Patient is a 70-year-old male who presents to the ED with chest pain. He reports that he was sitting watching TV when he developed chest pain. He attempted to alleviate the pain by getting up and walking around, but this did not help. At 11:30, he took a nitroglycerin tablet with minimal relief. He then took a second nitroglycerin tablet at 11:35 but did not take a third dose. The patient describes the pain as initially steady but now coming and going. He characterizes it as a dull pain located in the center of his chest without radiation to the sides or back. He denies shortness of breath, nausea, vomiting, or diaphoresis. The patient has a history of chest pain in the past and reports having had a stress test years ago, but nothing recent. He denies any known history of heart attacks, stents, or blood clots. He recently established care with a ross furnace operator, Dr. Casanova, after transitioning from Dr. Carreno who left the practice. The patient reports having an 85% blockage in his carotid artery. Related Data Previous Rx's ?Medication ?Instructions ?Recorded blood sugar diagnostic (Premier #300 ea 05/30/23 Test Strip) blood-glucose meter (Premier #1 ea 05/30/23 Classic Glucose Meter) lancets 30 gauge (Ultra Thin #300 ea 05/30/23 Lancets) blood-glucose meter (OneTouch #1 ea 06/01/23 Ultra2 Meter) blood sugar diagnostic (OneTouch #100 ea 07/31/24 Ultra Test strips) lancets 33 gauge (OneTouch Delica #100 ea 07/31/24 Plus Lancet) pen needle, diabetic 32 gauge x #100 ea 07/31/24 5/32 (BD Nasreen 2nd Gen Pen Needle) clopidogrel 75 mg tablet See Rx Instructions .Route 08/06/24 .COMPLEX #90 tabs losartan 50 mg tablet See Rx Instructions .Route 11/26/24 .COMPLEX #90 tabs potassium chloride 10 mEq 10 meq PO DAILY #30 tabs 12/18/24 tablet,extended release (Klor-Con) CPAP mask and supplies #1 ea 01/10/25 furosemide 20 mg tablet 20 mg PO DAILY #30 tabs 01/17/25 Nasal CPAP mask with head gear #1 ea 01/24/25 leflunomide 20 mg tablet 20 mg PO DAILY #30 tabs 02/21/25 Held on 04/29/25. Instructions: Home Medication placed on hold at Doctor's office prednisone 10 mg tablet See Rx Instructions PO .COMPLEX 02/21/25 PRN joint pain #30 tabs insulin glargine 100 unit/mL (3 45 unit (0.45 mL) SUBCUT QAM #45 mL 03/22/25 mL) subcutaneous pen (Lantus Solostar U-100 Insulin) triamcinolone acetonide 0.1 % 1 applic topical DAILY #30 grams 04/09/25 topical cream clindamycin HCl 300 mg capsule 300 mg PO TID #21 caps 04/15/25 (Cleocin HCl) nitroglycerin 0.4 mg sublingual 0.4 mg sublingual Q5M PRN chest 04/25/25 tablet pain #30 tabs prednisone 10 mg tablet 10 mg PO DAILY #30 tabs 04/29/25 ezetimibe 10 mg tablet See Rx Instructions .Route 05/10/25 .COMPLEX #90 tabs Allergies Allergy/AdvReac Type Severity Reaction Status Date / Time oxycodone (From Percocet) Allergy ADR-Confusi Verified 04/25/25 15:22 on [facility] ED [facility]: Medical History (Updated 06/29/25 @ 04:04 by Denys Finney MD) Immunization counseling High risk medication use Seronegative rheumatoid arthritis of both hands Serrated polyp of colon CAD (coronary artery disease) Diabetes mellitus type 2, controlled Right rotator cuff tendonitis Hearing loss Chronic secretory otitis media Surgical History History of neck surgery History of temporal artery biopsy 01/17/24 Dr. Fiore History of rotator cuff surgery History of cholecystectomy History of ear surgery (~11/2019) H/O carotid endarterectomy History of appendectomy Family History Father Diabetes Cancer Mother Cancer at age 81 - Breast cancer Social History Smoking and tobacco/nicotine status: never used tobacco/nicotine Quit status (tobacco/nicotine): has quit using Alcohol intake: never Substance/Drug Use: never Physical Exam Narrative: EXAM NARRATIVE: General: Alert, non-toxic appearing, in no apparent distress HEENT: Head normocephalic and atraumatic. Mucous membranes moist. Neck: Supple Respiratory: Clear breath sounds. No increased work of breathing. No wheezing. Cardiac: Regular rate and rhythm, equal pulses times four Abdomen: Soft, non-distended, no rebound or guarding Extremities: 1+ bilateral pedal edema noted Neuro: Cranial nerves grossly intact, no focal motor or sensory deficits noted Body Habitus: Obese Course Vital Signs: Vital signs: Vital Signs Temperature 97.8 F 06/29/25 00:17 Pulse Rate 69 06/29/25 01:33 Respiratory Rate 18 06/29/25 01:33 Blood Pressure 125/78 06/29/25 01:33 Pulse Oximetry 95 06/29/25 01:33 Oxygen Delivery Me thod Room Air 06/29/25 01:33 MDM - Chest Pain Medical Decision Making ROS: Cardiovascular: Positive for chest pain. Denies radiation of pain, palpitations. Respiratory: Denies shortness of breath, cough. Gastrointestinal: Denies nausea, vomiting. Constitutional: Denies fever, chills, diaphoresis. All other systems reviewed and negative except as noted in HPI. MEDICATIONS AND ALLERGIES: Medications: - Antihypertensive medication (specific name not provided) - Clopidogrel - Ezetimibe - Diuretic for edema (specific name not provided) - Previously on baby aspirin but discontinued when started on clopidogrel PAST HISTORICAL DATA: PMH: - Diabetes mellitus - Hypertension - Peripheral edema - Carotid artery stenosis (85% blockage) - History of chest pain PSH: None specifically mentioned Family History: Not provided Social History: Not provided INITIAL IMPRESSION AND PLAN: Given the history and presentation, the primary working diagnosis is chest pain of uncertain etiology with consideration for acute coronary syndrome. Additional considerations include unstable angina, NSTEMI, musculoskeletal chest pain, and gastroesophageal reflux disease. Based on this initial impression I will order: 1. Cardiac workup including serial troponins and EKG 2. CTA of the chest to evaluate for pulmonary embolism 3. Chest X-ray to evaluate for other potential causes of chest pain 4. CBC to assess for anemia or infection 5. Continuous cardiac monitoring during ED stay TEST INTERPRETATIONS: EKG: Sinus rhythm with a rate of 65 beats per minute. No ischemic ST elevation or depressions noted. CTA of the chest: No evidence of pulmonary embolism. Incidentally noted pulmonary nodules with recommendation for follow-up in six months. No other acute pathology noted. Chest X-ray: Negative for acute pathology. Some streaky opacities in the bilateral lung bases, likely representing atelectasis. Laboratory studies: - CBC: Normal - Troponin: Normal initial and delta values (serial troponins negative) PROCEDURES: No high-risk procedures were performed during this encounter. CONSIDERED BUT NOT PERFORMED: Cardiac catheterization CONSIDERED but NOT DONE due to negative troponins, normal EKG, and resolution of chest pain during ED observation. Outpatient follow-up with cardiology is more appropriate at this time. FINAL IMPRESSION: Based on all the above, my clinical impression is most compatible with non-cardiac chest pain, likely musculoskeletal or reflux-related. The clinical picture is not currently suggestive of acute coronary syndrome, pulmonary embolism, or aortic dissection. Although other conditions were also considered, they were deemed unlikely based on the clinical information available. CLINICAL DISPOSITION: The patient's current condition is stable in my estimation and the most appropriate and indicated disposition at this time is discharge home with outpatient cardiology follow-up. DISCHARGE RATIONALE: The patient is safe for discharge home based on negative cardiac biomarkers (two normal troponins), normal EKG without ischemic changes, negative CTA ruling out pulmonary embolism, and complete resolution of chest pain during ED observation. The patient has established care with a ross furnace operator (Dr. Casanova) and will follow up as an outpatient for further evaluation of his known carotid stenosis and to discuss this episode of chest pain. The patient understands return precautions and is eager for discharge. RISK STRATIFICATION AND CLINICAL DECISION RULES APPLIED: HEART Score assessment: - History: Moderately suspicious (1 point) - EKG: Normal (0 points) - Age: >=5 years (2 points) - Risk factors: Diabetes, hypertension, carotid stenosis (2 points) - Troponin: Normal (0 points) Total HEART Score: 5 points - Moderate risk (2-3% risk of MACE) Despite a moderate HEART score, the patient had negative serial troponins, a normal EKG, resolution of symptoms, and a negative CTA chest, supporting the decision for discharge with outpatient follow-up. CASE SUMMARY: 70-year-old male with diabetes, hypertension, and known carotid stenosis presented with chest pain that began while watching TV. He took two nitroglycerin tablets with minimal relief. The pain was described as dull, central chest pain without radiation. The patient had a comprehensive cardiac workup including serial troponins, EKG, CTA chest, and chest X-ray, all of which were negative for acute cardiac or pulmonary pathology. His chest pain resolved during ED observation. Incidental pulmonary nodules were noted on CTA requiring follow-up in 6 months. The patient was hemodynamically stable throughout his ED stay with no evidence of acute coronary syndrome. Given the negative workup and symptom resolution, the patient was discharged home with instructions to follow up with his ross furnace operator, Dr. Casanova, and to return to the ED for recurrent or worsening chest pain, shortness of breath, or other concerning symptoms. Lab Data I reviewed the patient's lab results. 06/29/25 01:00 06/29/25 01:00 Radiology Impressions Chest X-Ray 06/29/25 00:34 IMPRESSION: Streaky opacities in the bilateral lung bases, likely atelectasis. Superimposed infection can not be excluded. Chest CTA 06/29/25 02:09 IMPRESSION: Incidentally noted pulmonary nodules as above recommend follow-up in to 6 months. No acute finding. Hello REFERENCES: Deborah Simon et al. Guidelines for Management of Incidental Pulmonary Nodules Detected on CT Images: From the Fleischner Society 2017. Radiology. 2017;284(1):228-243. ADDENDUM: 06/29/25 0345 ( Hello in impression was inadvertently recorded, please disregard). Laboratory Results WBC 11.26 10^3/uL (3.29-11.43) 06/29/25 01:00 RBC 4.64 10^6/uL (3.85-5.65) 06/29/25 01:00 Hgb 13.90 g/dL (11.27-16.99) 06/29/25 01:00 Hct 40.9 % (37-53) 06/29/25 01:00 MCV 88.1 fl (82-101) 06/29/25 01:00 MCH 30.0 pg (27-33) 06/29/25 01:00 MCHC 34.0 g/dL (30-55) 06/29/25 01:00 RDW 13.2 % (12.1-15.1) 06/29/25 01:00 Plt Count 272 10^3/cmm (157-399) 06/29/25 01:00 MPV 9.1 fL (7.4-10.4) 06/29/25 01:00 Neut % (Auto) 58.4 % 06/29/25 01:00 Lymph % (Auto) 29.8 % 06/29/25 01:00 Newberry % (Auto) 9.1 % 06/29/25 01:00 Eos % (Auto) 1.7 % 06/29/25 01:00 Baso % (Auto) 0.5 % 06/29/25 01:00 Neut # (Auto) 6.57 10^3/uL (1.8-7.7) 06/29/25 01:00 Lymph # (Auto) 3.4 10^3/uL (0.8-4.8) 06/29/25 01:00 Newberry # (Auto) 1.0 10^3/uL (0.2-0.9) H 06/29/25 01:00 Eos # (Auto) 0.2 10^3/uL (0.0-0.8) 06/29/25 01:00 Baso # (Auto) 0.1 10^3/uL (0.0-0.1) 06/29/25 01:00 Nucleated RBC % (auto) 0 % 06/29/25 01:00 Nucleated RBCs # 0.0 /100WBC 06/29/25 01:00 Sodium 140 mmol/L (136-145) 06/29/25 01:00 Potassium 4.0 mmol/L (3.5-5.1) 06/29/25 01:00 Chloride 100 mmol/L (98-107) 06/29/25 01:00 Carbon Dioxide 28 mmol/L (22-29) 06/29/25 01:00 Anion Gap 16.0 (5-19) 06/29/25 01:00 BUN 21 mg/dL (8-23) 06/29/25 01:00 Creatinine 0.9 mg/dL (0.7-1.2) 06/29/25 01:00 GFR Calculation 83.4 mL/min (90-130) L 06/29/25 01:00 Glucose 134 mg/dL (65-115) H 06/29/25 01:00 Calculated Osmolality 295 mOsm/kg (285-295) 06/29/25 01:00 Calcium 9.5 mg/dL (8.5-10.5) 06/29/25 01:00 Total Bilirubin 0.3 mg/dL (0.15-1.2) 06/29/25 01:00 AST 22 U/L (0-40) 06/29/25 01:00 ALT 21 U/L (0-41) 06/29/25 01:00 Alkaline Phosphatase 117 U/L (40-130) 06/29/25 01:00 Troponin T Baseline 7 ng/L (0-15) 06/29/25 01:00 Troponin T 120 Minute < 6.0 ng/L (0-15) 06/29/25 03:35 Delta Troponin T -[id number] ABS# (0-10) L 06/29/25 03:35 NT-Pro-B Natriuret Pep < 36 pg/mL (0-125) 06/29/25 01:00 Total Protein 6.9 g/dL (6.6-8.7) 06/29/25 01:00 Albumin 4.3 g/dL (3.5-5.2) 06/29/25 01:00 Globulin 2.6 g/dL (1.3-4.6) 06/29/25 01:00 All radiology interpretation(s) finalized by discharge Discharge Plan Discharge Patient Disposition: Home Clinical Impression: Chest pain Qualifiers: Chest pain type: other chest pain Qualified Code(s): R07.89 - Other chest pain Condition: Stable Prescriptions: No Action prednisone 10 mg tablet See Rx Instructions PO .COMPLEX PRN (Reason: joint pain) Qty: 30 1RF Rx Instructions: take 1 tab daily up to 7 days prn joint pain flare PO PRN; leflunomide 20 mg tablet 20 mg PO DAILY Qty: 30 3RF insulin glargine [Lantus Solostar U-100 Insulin] 100 unit/mL (3 mL) insulin pen 45 unit SUBCUT QAM Qty: 45 6RF (DME) Nasal CPAP mask with head gear See Rx Instructions .Route .MEDSUPPLY Qty: 1 0RF Rx Instructions: Use each night with CPAP triamcinolone acetonide 0.1 % cream 1 applic topical DAILY Qty: 30 6RF clindamycin HCl [Cleocin HCl] 300 mg capsule 300 mg PO TID Qty: 21 0RF nitroglycerin 0.4 mg tablet, sublingual 0.4 mg sublingual Q5M PRN (Reason: chest pain) Qty: 30 0RF Rx Instructions: do not exceed 3 doses per episode prednisone 10 mg tablet 10 mg PO DAILY Qty: 30 0RF Rx Instructions: 4 daily x 3 days; 3 tabs x 3 days; 2 tabs x 3 days; 1 tab x 3 days. (DME) Premier Test Strip Strip See Rx Instructions .ROUTE .COMPLEX Qty: 300 3RF Dose Instruction: USE DIRECTED TO MONITOR BLOOD SUGAR THREE TIMES DAILY Rx Instructions: to use TID with primier meter 90 supply (DME) lancets [Ultra Thin Lancets] 30 gauge misc See Rx Instructions .ROUTE .COMPLEX Qty: 300 3RF Dose Instruction: USE DIRECTED TO MONITOR BLOOD SUGAR THREE TIME DAILY Rx Instructions: to use TID to check blood sugar 90 supply (DME) blood-glucose meter [Premier Classic Glucose Meter] Misc See Rx Instructions .Route Qty: 1 0RF Rx Instructions: to use TID to check blood sugar (DME) blood-glucose meter [OneTouch Ultra2 Meter] Misc See Rx Instructions .Route Qty: 1 0RF Rx Instructions: Use to test blood gluose three times a day (DME) OneTouch Ultra Test Strip See Rx Instructions .Route Qty: 100 12RF Rx Instructions: Use one strip to test blood glucose three times a day (DME) lancets [OneTouch Delica Plus Lancet] 33 gauge misc See Rx Instructions .ROUTE .MEDSUPPLY Qty: 100 12RF Rx Instructions: use to test blood glucose three times a day (DME) pen needle, diabetic [BD Nasreen 2nd Gen Pen Needle] 32 gauge x 5/32 needle See Rx Instructions .ROUTE .COMPLEX Qty: 100 12RF Dose Instruction: USE DIRECTED Rx Instructions: USE DIRECTED clopidogrel 75 mg tablet See Rx Instructions .ROUTE .COMPLEX Qty: 90 3RF Dose Instruction: TAKE 1 TABLET BY MOUTH EVERY DAY Rx Instructions: TAKE 1 TABLET BY MOUTH EVERY DAY losartan 50 mg tablet See Rx Instructions .ROUTE .COMPLEX Qty: 90 3RF Dose Instruction: TAKE 1 TABLET BY MOUTH EVERY DAY Rx Instructions: TAKE 1 TABLET BY MOUTH EVERY DAY potassium chloride [Klor-Con 10] 10 mEq tablet extended release 10 meq PO DAILY Qty: 30 6RF (DME) CPAP mask and supplies See Rx Instructions .ROUTE .MEDSUPPLY Qty: 1 2RF Rx Instructions: Use while sleeping at least 4 hours per day. furosemide 20 mg tablet 20 mg PO DAILY Qty: 30 6RF ezetimibe 10 mg tablet See Rx Instructions .ROUTE .COMPLEX Qty: 90 3RF Dose Instruction: Take 1 tablet by mouth once daily Rx Instructions: Take 1 tablet by mouth once daily Discharge Orders: Discharge ED (Routine); Ordered 06/29/25 Ordered By: Denys Finney Referrals: Shakeel Fulton MD [Primary Care Provider, [facility]] Discharge Activity: Increase activity as tolerated Patient Instructions: Chest Pain (ED), Opioid Safety, Pain Management, Patient Portal & Reny Instructions Activity Restrictions/Additional Instructions: INSTRUCTIONS: 1. You have been evaluated for chest pain. Your tests today, including heart enzymes (troponin), EKG, and CT scan, do not show evidence of a heart attack or blood clot in your lungs. 2. Follow up with your ross furnace operator, Dr. Casanova, within 1 week. Please inform them about this emergency department visit. 3. Continue taking all your regular medications as prescribed, including your blood pressure medications, clopidogrel, and ezetimibe. 4. Use your nitroglycerin as needed for chest pain according to your previous instructions (up to 3 doses, 5 minutes apart). 5. The CT scan showed some small nodules in your lungs that require follow-up. Please schedule a follow-up CT scan in 6 months with your primary care physician, Dr. Kinney. RETURN TO THE EMERGENCY DEPARTMENT IMMEDIATELY IF YOU EXPERIENCE: - Chest pain that is severe, persistent, or not relieved by nitroglycerin - Shortness of breath or difficulty breathing - Dizziness, lightheadedness, or fainting - Pain that spreads to your jaw, left arm, or back - Nausea or vomiting with chest pain - Excessive sweating with chest pain Print Language: Luxembourgish Coding Level of Care Code ED Loss Control Technician for Alyssa Miller
[2025-06-29 04:39] VITALS: BP 149/80; PULSE 66; RESP 18; O2SAT 95
== END 2025-06-29 04:41 | disposition home or self-care (01) ==
PROVIDERS: Emergency Provider Student in an Organized Health Care Education/Training Program; PCP Family Medicine
DX: R07.89 Other chest pain (principal); Z79.4 Long term (current) use of insulin; Z79.02 Long term (current) use of antithrombotics/antiplatelets; E11.9 Type 2 diabetes mellitus without complications; I25.10 Atherosclerotic heart disease of native coronary artery without angina pectoris
CPT/HCPCS: 36415; 71045; 71275; 80053; 83880; 84484; 85025; 93005; 99285; J9999

== ENCOUNTER → 2025-07-05 10:47 | Outpatient (BNVA) | payer MEDICARE, OTHER, SELFPAY | PROVIDERS: PCP Family Medicine; Visit Provider Dermatology | DX: L57.0 Actinic keratosis (principal); L56.0 Drug phototoxic response; M79.3 Panniculitis, unspecified; R60.0 Localized edema; I87.2 Venous insufficiency (chronic) (peripheral); L28.0 Lichen simplex chronicus; D69.2 Other nonthrombocytopenic purpura; L28.1 Prurigo nodularis; D23.71 Other benign neoplasm of skin of right lower limb, including hip; D23.72 Other benign neoplasm of skin of left lower limb, including hip; L81.4 Other melanin hyperpigmentation; L82.1 Other seborrheic keratosis | CPT/HCPCS: 99204 ==

== ENCOUNTER → 2025-08-02 08:07 | Outpatient (BNVA) | payer MEDICARE, OTHER, SELFPAY | PROVIDERS: PCP Family Medicine; Visit Provider Dermatology | DX: L56.0 Drug phototoxic response (principal); R60.0 Localized edema; I87.2 Venous insufficiency (chronic) (peripheral); L85.3 Xerosis cutis; M72.1 Knuckle pads; L82.1 Other seborrheic keratosis; D23.71 Other benign neoplasm of skin of right lower limb, including hip; D23.72 Other benign neoplasm of skin of left lower limb, including hip; L57.0 Actinic keratosis | CPT/HCPCS: 17000; 99213 ==

== ENCOUNTER → 2025-09-23 08:28 | Outpatient (BNVA) | payer MEDICARE, OTHER, SELFPAY | PROVIDERS: PCP Family Medicine; Visit Provider Family Medicine | DX: Z51.81 Encounter for therapeutic drug level monitoring (principal); E11.9 Type 2 diabetes mellitus without complications | CPT/HCPCS: 80053; 83036; 85025 ==

== ENCOUNTER 2025-09-26 07:58 | Outpatient (CLI) | payer MEDICARE, OTHER, SELFPAY ==
--- NOTE | 2025-09-26 08:30 | USCV_ITS ---
RamirezChristopher murphy Age: 70 Gender: M : 1955 Exam Date: 09/26/2025 08:17 Ordering Phys: Jossy Kline NP Technologist: CARLOS Exam Location: [facility] [place] Indication: left endarterectomy Risk Factors: Previous Vascular Surgery: Right Brachial BP: / Left Brachial BP: / Right Left Velocity (cm/s) Spectral Plaque Velocity (cm/s) Spectral Plaque Syst/Diast Broadening Syst/Diast Broadening 103.80/31.00 Prox CCA 79.60 / 25.30 75.20/ 22.00 Mid CCA 81.40 / 22.90 101.20/27.10 Distal CCA 63.20 / 20.00 81.30/ 17.80 Prox ICA 112.40/ 29.90 79.90/ 27.70 Mid ICA 77.10 / 29.90 62.90/ 24.80 Distal ICA 67.90 / 27.60 111.90 ECA 103.20 0.80 ICA/CCA 1.80 Antegrade Vertebral Antegrade 32.90/ 10.30 cm/s 31.10/ 6.70 cm/s Tri Subclavian Tri 124.5 63.60 0 FINDINGS Comparison:. 09/20/24 Prior left CEA. No significant elevation of systolic or diastolic velocities. Waveforms are normal. Mild bilateral scattered calcified plaque throughout the common carotid arteries and extending through the bifurcation. Antegrade vertebral arteries. CONCLUSIONS Bilateral ICA stenosis less than 50%. Mild carotid calcified plaque. Dr. Hannah Keen DO (Electronically Signed) Final Date: 26 September 2025 09:11 S
== END 2025-09-26 07:59 | disposition home or self-care (01) ==
PROVIDERS: PCP Family Medicine; Visit Provider Nurse Practitioner Family
DX: I65.23 Occlusion and stenosis of bilateral carotid arteries (principal); Z98.890 Other specified postprocedural states
CPT/HCPCS: 93880